=== PATIENT | female | born 1980 | race Caucasian/White ===

== ENCOUNTER 2022-08-13 17:09 | Emergency (ER) | payer MEDICAID, OTHER ==
[~2022-08-13] VITALS: Ht 162.6 cm; Wt 92.0 kg
[2022-08-13] MEDS ORDERED: IBUP600T27 PO (19:38)
[2022-08-13] MEDS ORDERED: PENI500T2 PO (19:38)
[2022-08-13] MEDS ORDERED: MONT-8 PO (19:38)
[2022-08-13 20:15] VITALS: BP 128/83
== END 2022-08-13 20:17 | disposition home or self-care (01) ==
LOC: ER 17:09
DX: J02.9 Acute pharyngitis, unspecified (principal); Z90.710 Acquired absence of both cervix and uterus

== ENCOUNTER 2024-01-04 09:19 | Emergency (ER) | payer MEDICAID ==
[~2024-01-04] VITALS: Ht 162.6 cm; Wt 94.7 kg
[~2024-01-04 09:19] MED LIST: IBUP-1454 PO; MONT-8 PO; PENI500T2 PO
[2024-01-04 09:57] VITALS: BP 138/86; PULSE 88; RESP 16; TEMP 97.9; O2SAT 95
[2024-01-04] MEDS ORDERED: METH4PAK PO (10:36)
== END 2024-01-04 10:48 | disposition home or self-care (01) ==
LOC: ER 09:19
DX: M76.62 Achilles tendinitis, left leg (principal); Z90.710 Acquired absence of both cervix and uterus
CPT/HCPCS: 73610

== ENCOUNTER 2025-02-05 18:06 | Emergency (ER) | payer MEDICAID ==
[~2025-02-05] VITALS: Ht 162.6 cm; Wt 97.3 kg
[~2025-02-05 18:06] MED LIST changes: +METH4PAK PO
[2025-02-05 18:07] VITALS: BP 137/58; PULSE 97; RESP 16; TEMP 98.4; O2SAT 99
[2025-02-05] MEDS: TETANUS-DIPTH-ACEL PERTUSSIS 0.5ML SYR Tdap IM ONE (19:19)
[2025-02-05] MEDS: LIDOCAINE 1% HCL (LOCAL ANESTH.) INJ 20ML MDV ID ONE (19:24)
[2025-02-05] MEDS: cefTRIAXone SOD 1,000 MG VL IM ONE (19:25)
[2025-02-05] MEDS ORDERED: ACET500T58 PO (19:26)
[2025-02-05] MEDS ORDERED: AMOX875T4 PO (19:26)
--- NOTE | 2025-02-05 19:28 | ED.PDOC ---
History of Present Illness(SKN HPI Comments 44 year old female presents to ER with complaints of dog bite to left hand x 1 hour. Patient states her dog who is fully up to date on shots bit her on her left hand 2 hours prior to arrival to ER and sustained 2 lacerations to left hand at that time. She reports 10/10 pain to left hand and is unsure when her last tetanus shot was. Denies use of medications for current symptoms and presents to ER ambulatory, in no distress. Denies numbness/tingling, left wrist pain or any further symptoms/complaints Chief Complaint: Animal Bite Time Seen by MD: 18:13 Primary Care Provider: ORION History of Present Illness: Nurses Notes, Medications, Allergies Allergies: Coded Allergies: NO KNOWN ALLERGIES (Unverified , 08/13/22) Home Meds Active Scripts Amoxicillin & Pot Clavulanate (Amoxicillin/Potassium Cla) 875 Mg Tab, 1 TAB PO BID for 7 Days, #14 TAB 0 Refills Prov:GUDELIA LIRIANO 02/05/25 Acetaminophen (Acetaminophen) 500 Mg Tab, 500 MG PO Q4HPRN, #30 TAB 0 Refills Prov:GUDELIA LIRIANO 02/05/25 Methylprednisolone (Medrol Dosepak) 4 Mg Paul, 4 MG PO UD, #21 TAB UAD Prov:KRANTHI BAÑUELOS 01/04/24 Montelukast Sodium (MONTELUKAST SODIUM) 10 Mg Tab, 1 TAB PO DAILY for 30 Days, #30 TAB 5 Refills Prov:KRANTHI BAÑUELOSP 08/13/22 Ibuprofen (Ibuprofen) 600 Mg Tab, 1 TAB PO TID PRN, #30 TAB Prov:KRANTHI BAÑUELOS 08/13/22 Penicillin V Potassium (Veetids) 500 Mg Tab, 1 TAB PO TID for 10 Days, #30 TAB Prov:KRANTHI BAÑUELOS 08/13/22 Information Source: Patient Mode of Arrival: Ambulatory Past Medical History PAST MEDICAL HISTORY: Denies Surgical History: 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 Family History Family History: Unknown Social History Smoker: Non-Smoker Alcohol: Denies ETOH Use Drugs: Denies Drug Use Lives In: Home Constitutional: denies: chills, diaphoresis, fatigue, fever, malaise, sweats, weakness, others EENTM: denies: blurred vision, double vision, ear bleeding, ear discharge, ear drainage, ear pain, ear ringing, eye pain, eye redness, hearing loss, mouth pain, mouth swelling, nasal discharge, nose bleeding, nose congestion, nose pain, photophobia, tearing, throat pain, throat swelling, voice changes, others Respiratory: denies: cough, hemoptysis, orthopnea, SOB at rest, shortness of breath, SOB with excertion, stridor, wheezing, others Cardiovascular: denies: chest pain, dizzy spells, diaphoresis, Dyspnea on exertion, edema, irregular heart beat, left arm pain, lightheadedness, palpitations, PND, syncope, others Gastrointestinal: denies: abdomen distended, abdominal pain, blood streaked bowels, constipated, diarrhea, dysphagia, difficulty swallowing, hematemesis, m emily, nausea, poor appetite, poor fluid intake, rectal bleeding, rectal pain, vomiting, others Genitourinary: denies: abnormal vagina bleeding, burning, dyspareunia, dysuria, flank pain, frequency, hematuria, incontinence, pain, , vagina discharge, urgency, others Neurological: denies: dizziness, fainting, headache, left sided numbness, left sided weakness, numbness, paresthesia, pre-existing deficit, right sided numbness, right sided weakness, seizure, speech problems, tingling, tremors, weakness, others Musculoskeletal: reports: others (As stated in HPI) Integumetry: reports: others (As stated in HPI) Allergic/Immunocompromised: denies: Difficulty Healing, Frequent Infections, Hives, Itching, others Hematologic/Lymphatic: denies: anemia, blood clots, easy bleeding, easy bruising, swollen glands, others Endocrine: denies: excessive hunger, excessive sweating, excessive thirst, excessive urination, flushing, intolerance to cold, intolerance to heat, unexplained weight gain, unexplained weight loss, others Psychiatric: denies: anxiety, bipolar disorder, depression, hopeless, panic disorder, schizophrenia, sleepless, suicidal, others Physical Exam General Appearance: No Apparent Distress, Obese HEENT: PERRL/EOMI Neck: Full Range of Motion, Non-Tender, Normal Respiratory: Chest Non-Tender, Lungs Clear, No Accessory Muscle Use, No Respiratory Distress, Normal Breath Sounds Cardiovascular: No Murmur, No Gallop, Regular Rate/Rhythm Breast Exam: Deferred Gastrointestinal: NOT DONE Genitalia: Deferred Pelvic: Deferred Rectal: Deferred Extremities: Normal capillary refill, Normal range of motion Neurologic: Alert, chief digital media officer II-XII nml as Tested, No Motor Deficits, Normal Affect, Normal Mood, No Sensory Deficits Cerebellar Function: Normal Reflexes: Normal Skin: Dry, Warm, Other (2 - 2 cm lacerations noted to left hand. Slight TTP/swelling/erythema localized to wound edges. No FB/nailbed injury/further skin changes noted. Patient able to fully move all fingers left hand. Pulses intact) Peripheral Pulses: 2+ Radial (R), 2+ Radial (L), 2+ Brachial (R), 2+ Brachial (L) Lymphatic: No Adenopathy Was a procedure done? Was a procedure done?: No Sedation Sedation?: No Laceration Repair : Location Left hand Length Total of 2 lacerations each 2 cm in size Anesthetic: Lidocaine (1%), Without epi Laceration Repair Prep: Saline, Betadine, by Irrigation (Heavily irrigated without any signs of foreign body) Laceration Repair Wound Comple: epidermis/dermis repair Laceration Repair: Number of sutures (Total of 3 sutures placed- all loosely approximated), Size (4-0), Nylon, Simple, Non-adherent gauze Informed consent obtained: Yes Risks, benefits, and alternati: Yes Differential Diagnosis (INTG) Differential Diagnosis: Fracture Differential Diagnosis: Open Fracture, Puncture Wound, Retained Foreign Body X-Ray, Labs, Meds, VS Vital Signs Date Time Temp Pulse Resp B/P (MAP) Pulse Ox O2 Delivery O2 Flow Rate FiO2 02/05/25 18:07 98.4 97 16 137/58 99 98.4 Current Medications Medications (Trade) Dose Ordered Sig/Alia Route Start Time Stop Time Status Last Admin Diphtheria/ Tetanus/Acell Pertussis (Boostrix T-Dap) 0.5 ml ONCE ONCE IM 02/05/25 19:15 02/05/25 19:16 DC 02/05/25 19:19 Ceftriaxone Sodium (Rocephin) 1,000 mg ONCE ONCE IM 02/05/25 19:30 02/05/25 19:31 DC 02/05/25 19:25 PATIENT: ELDER POOLERENEET: [id number] UNIT: [id number] : 1980 LOC: ER ROOM / BED: / AGE / SEX: 44 / F ADM STATUS: REG ER SERVICE 10 ORDERING PHYSICIAN: GUDELIA LIRIANO PROCEDURE(s): LHAN - L HAND 3V XRAY REASON: left hand pain/laceration ORDER NUMBER(s): [id number], ACCESSION NUMBER(s): [id number] EXAM: XY L HAND 3V XRAY INDICATION: left hand pain/laceration TECHNIQUE: 3 views of the left hand COMPARISON: None FINDINGS/IMPRESSION: No radiographic evidence of an acute osseous abnormality. There is no acute fracture, osseous malalignment, or aggressive focal osseous lesion. There is no radiographically apparent joint space narrowing. Trace soft tissue emphysema along the distal aspect of the palm near the base of the 3rd digit compatible with soft tissue laceration ATED BY: JEANINE LLANES MD DICTATED DATE/TIME: 02/05/251931 SIGNED BY: JEANINE LLANES MD SIGNED DATE/TIME: 02/05/251931 CC: Left hand x-ray reviewed Tdap 0.5 mL IM ordered Rocephin 1 g IM ordered Patient neurovascularly intact and reported improvement in symptoms prior to discharge Advised to follow up in two days for wound check Advised to follow up in 10-14 days for removal of sutures Advised to follow up with PCP in 1-2 days Patient verbalized understanding and agreeable with current plan of care Advised to return to ER immediately if symptoms worsen Images Reviewed?: Images reviewed and evaluated by me Time of 1ST Reevaluation: 19:02 Reevaluation 1ST: N/A Patient Education/Counseling: Diagnosis, Treatment, Prognosis, Need For Follow Up Family Education/Counseling: No Family Present SEPSIS Sepsis Screen Date sepsis recognized/suspect: Feb 05, 2025 Time Sepsis recognized/suspect: 1807 Recent Procedure: No On Antibiotic Therapy: No Respiratory Rate >20: No Heart Rate >90: Yes Temp<36 C (96.8 F) or >38.3 C: No SBP <90 or MAP <65 mmHG: No New Acute Mental Status Change: No Is the patient on CPAP, BIPAP,: No Physician Orders L Hand 3v Xray (8/25/25 19:11) Vital Signs Date Time Temp Pulse Resp B/P (MAP) Pulse Ox O2 Delivery O2 Flow Rate FiO2 02/05/25 18:07 98.4 97 16 137/58 99 98.4 Medications Medications Dose Ordered Sig/Alia Route Start Time Stop Time Status Last Admin Dose Admin Ceftriaxone Sodium 1,000 mg ONCE ONCE IM 02/05/25 19:30 02/05/25 19:31 DC 02/05/25 19:25 Diphtheria/ Tetanus/Acell Pertussis 0.5 ml ONCE ONCE IM 02/05/25 19:15 02/05/25 19:16 DC 02/05/25 19:19 Departure 1 Departure Time of Disposition: 19:22 Impression: Primary Impression: Laceration of left hand Qualified Codes: S61.412A - Laceration without foreign body of left hand, initial encounter Disposition: HOME / SELF CARE / HOMELESS Condition: Stable e-Prescriptions Amoxicillin & Pot Clavulanate (Amoxicillin/Potassium Cla) 875 Mg Tab 1 TAB PO BID for 7 Days, #14 TAB 0 Refills Prov: GUDELIA LIRIANO 02/05/25 Acetaminophen (Acetaminophen) 500 Mg Tab 500 MG PO Q4HPRN, #30 TAB 0 Refills Prov: GUDELIA LIRIANO 02/05/25 Discharged With: Self Critical Care Note Critical Care Time?: No Stability Stability form required: No Heart Score Heart Score: Heart Score Response (Comments) Value History N/A 0 EKG N/A 0 Age N/A 0 Risk Factors N/A 0 Troponin N/A 0 Total 0 GUDELIA LIRIANO Feb 05, 2025 19:28
[2025-02-05] MEDS: LIDOCAINE 1% HCL (LOCAL ANESTH.) INJ 20ML MDV ONE (19:30)
--- NOTE | 2025-02-05 19:35 | DVH ---
EXAM: XY L HAND 3V XRAY INDICATION: left hand pain/laceration TECHNIQUE: 3 views of the left hand COMPARISON: None FINDINGS/IMPRESSION: No radiographic evidence of an acute osseous abnormality. There is no acute fracture, osseous malalig nment, or aggressive focal osseous lesion. There is no radiographically apparent joint space narrowin g. Trace soft tissue emphysema along the distal aspect of the palm near the base of the 3rd digit com patible with soft tissue laceration
== END 2025-02-05 20:24 | disposition home or self-care (01) ==
LOC: ER 18:06
DX: S61.412A Laceration without foreign body of left hand, initial encounter (principal); S61.452A Open bite of left hand, initial encounter; Z79.899 Other long term (current) drug therapy; Z23 Encounter for immunization; Z90.710 Acquired absence of both cervix and uterus; W54.0XXA Bitten by dog, initial encounter; Y93.89 Activity, other specified; Y92.89 Other specified places as the place of occurrence of the external cause; Y99.8 Other external cause status
CPT/HCPCS: 12002; 73130; 90471; 90715; 96372; 99284; J0696; J2003; 12001

== ENCOUNTER 2025-02-08 11:56 | Emergency (ER) | payer MEDICAID ==
[~2025-02-08] VITALS: Ht 162.6 cm; Wt 97.0 kg
[~2025-02-08 11:56] MED LIST changes: +ACET500T58 PO; +AMOX875T4 PO
--- NOTE | 2025-02-08 12:12 | ED.PDOC ---
GI ASSESSMENT HPI Comments 44-year-old female presents to the emergency department for chief complaint of abdominal pain. Patient states, she has been experiencing diffuse abdominal pain with associated symptoms of diarrhea x1 week. Patient reports, that she recently started on Amoxicillin antibiotics due to being bit by a dog last week, symptoms then shortly arose after. Patient denies fever, nausea, vomiting, dizziness, or headache. No other symptoms or modifying factors are present at this time. Chief Complaint: Abdominal Pain Time Seen by MD: 12:00 Primary Care Provider: ORION Land Notes: Nurses Notes, Medications, Allergies Allergies: Coded Allergies: NO KNOWN ALLERGIES (Unverified , 08/13/22) Home Meds Active Scripts Amoxicillin & Pot Clavulanate (Amoxicillin/Potassium Cla) 875 Mg Tab, 1 TAB PO BID for 7 Days, #14 TAB 0 Refills Prov:GUDELIA LIRIANO 02/05/25 Acetaminophen (Acetaminophen) 500 Mg Tab, 500 MG PO Q4HPRN, #30 TAB 0 Refills Prov:GUDELIA LIRIANO 02/05/25 Methylprednisolone (Medrol Dosepak) 4 Mg Paul, 4 MG PO UD, #21 TAB UAD Prov:KRANTHI BAÑUELOS 01/04/24 Montelukast Sodium (MONTELUKAST SODIUM) 10 Mg Tab, 1 TAB PO DAILY for 30 Days, #30 TAB 5 Refills Prov:KRANTHI BAÑUELOS 08/13/22 Ibuprofen (Ibuprofen) 600 Mg Tab, 1 TAB PO TID PRN, #30 TAB Prov:KRANTHI BAÑUELOS 08/13/22 Penicillin V Potassium (Veetids) 500 Mg Tab, 1 TAB PO TID for 10 Days, #30 TAB Prov:KRANTHI BAÑUELOS 08/13/22 Information Source: Friend Mode of Arrival: Ambulatory Timing: Weeks Duration: Since onset Prehospital treatment: None Vomitus: None Stool: Watery Severity: Moderate Recent: Antibiotics Recent Hx of: None Pain Location: Diffuse Modifying Factors: Nothing Associated sign and symptoms: Diarrhea, Abdominal Pain Past Medical History PAST MEDICAL HISTORY: Denies Surgical History: 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 Family History Family History: Unknown Social History Smoker: Non-Smoker Alcohol: Denies ETOH Use Drugs: Denies Drug Use Lives In: Home Constitutional: denies: chills, diaphoresis, fatigue, fever, malaise, sweats, weakness, others EENTM: denies: blurred vision, double vision, ear bleeding, ear discharge, ear drainage, ear pain, ear ringing, eye pain, eye redness, hearing loss, mouth pain, mouth swelling, nasal discharge, nose bleeding, nose congestion, nose pain, photophobia, tearing, throat pain, throat swelling, voice changes, others Respiratory: denies: cough, hemoptysis, orthopnea, SOB at rest, shortness of breath, SOB with excertion, stridor, wheezing, others Cardiovascular: denies: chest pain, dizzy spells, diaphoresis, Dyspnea on exertion, edema, irregular heart beat, left arm pain, lightheadedness, palpitations, PND, syncope, others Gastrointestinal: reports: abdominal pain, diarrhea; denies: abdomen distended, blood streaked bowels, constipated, dysphagia, difficulty swallowing, hematemesis, melena, nausea, poor appetite, poor fluid intake, rectal bleeding, rectal pain, vomiting, others Genitourinary: denies: abnormal vagina bleeding, burning, dyspareunia, dysuria, flank pain, frequency, hematuria, incontinence, pain, , vagina discharge, urgency, others Neurological: denies: dizziness, fainting, headache, left sided numbness, left sided weakness, numbness, paresthesia, pre-existing deficit, right sided numbness, right sided weakness, seizure, speech problems, tingling, tremors, wea kness, others Musculoskeletal: denies: back pain, gout, joint pain, joint swelling, muscle pain, muscle stiffness, neck pain, others Integumetry: denies: bruises, change in color, change in hair/nails, dryness, l aceration, lesions, lumps, rash, wounds, others Allergic/Immunocompromised: denies: Difficulty Healing, Frequent Infections, Hives, Itching, others Hematologic/Lymphatic: denies: anemia, blood clots, easy bleeding, easy bruising, swollen glands, others Endocrine: denies: excessive hunger, excessive sweating, excessive thirst, excessive urination, flushing, intolerance to cold, intolerance to heat, unexplained weight gain, unexplained weight loss, others Psychiatric: denies: anxiety, bipolar disorder, depression, hopeless, panic disorder, schizophrenia, sleepless, suicidal, others All Other Systems: Reviewed and Negative Physical Exam General Appearance: No Apparent Distress, Normal HEENT: Normal ENT Inspection, Pharynx Normal Neck: Full Range of Motion, Non-Tender, Normal, Normal Inspection Respiratory: Chest Non-Tender, Lungs Clear, No Accessory Muscle Use, No Respiratory Distress, Normal Breath Sounds Cardiovascular: No Edema, No Murmur, No Gallop, Normal Peripheral Pulses, Regular Rate/Rhythm Breast Exam: Deferred Gastrointestinal: No Organomegaly, Non Tender, No Pulsatile Mass, Normal Bowel Sounds, Soft Genitalia: Deferred Pelvic: Deferred Rectal: Deferred Extremities: No calf tenderness, Normal capillary refill, Normal inspection, Normal range of motion, Non-tender, No pedal edema Musculoskeletal : Apperance: Normal Neurologic: Alert, brush maker II-XII nml as Tested, No Motor Deficits, Normal Affect, Normal Mood, No Sensory Deficits Cerebellar Function: Normal Reflexes: Normal Skin: Dry, Normal Color, Warm Lymphatic: No Adenopathy Was a procedure done? Was a procedure done?: No GI differential Dx Differential Diagnosis: Gastritis/PUD, Gastroenteritis, Bacterial, Viral X-Ray, Labs, Meds, VS Vital Signs Date Time Temp Pulse Resp B/P (MAP) Pulse Ox O2 Delivery O2 Flow Rate FiO2 02/08/25 11:57 98.4 100 18 137/82 99 98.4 Lab Test 02/08/25 14:05 02/08/25 12:00 Range/Units Urine Color Light-yellow Yellow Urine Clarity Turbid H Clear Urine pH 6.5 5.0-9.0 Urine Specific [place] 1.015 1.001-1.035 Urine Protein Negative Negative Urine Ketones Negative Negative Urine Blood Negative Negative /uL Urine Nitrite Negative Negative Urine Bilirubin Negative Negative Urine Urobilinogen Normal Negative mg/dL Urine Leukocyte Esterase Negative Negative /uL Urine RBC 4 0 - 4 /hpf Urine Microscopic WBC 1 0-5 /HPF Urine Squamous Epithelial Cells Few <5 /hpf Urine Bacteria Few H None Seen /hpf Urine Glucose Normal Normal mg/dL White Blood Count 8.0 4.4-10.8 10^3/uL Red Blood Count 4.82 4.0-5.20 10^6/uL Hemoglobin 15.2 12.2-16.2 g/dL Hematocrit 45.4 36.0-46.0 % Mean Corpuscular Volume 94.2 80.0-100.0 fL Mean Corpuscular Hemoglobin 31.6 28.0-32.0 pg Mean Corpuscular Hemoglobin Concent 33.5 32.0-36.0 g/dL Red Cell Distribution Width 13.9 11.8-14.3 % Platelet Count 337 140-450 10^3/uL Mean Platelet Volume 7.7 6.9-10.8 fL Neutrophils (%) (Auto) 71.2 37.0-80.0 % Lymphocytes (%) (Auto) 23.1 10.0-50.0 % Monocytes (%) (Auto) 3.8 0.0-12.0 % Eosinophils (%) (Auto) 1.2 0.0-7.0 % Basophils (%) (Auto) 0.7 0.0-2.0 % Neutrophils # (Auto) 5.7 1.6-8.6 10 ^3/uL Lymphocytes # (Auto) 1.9 0.4-5.4 10 ^3/uL Monocytes # (Auto) 0.3 0-1.3 10 ^3/uL Eosinophils # (Auto) 0.1 0-0.8 10 ^3/uL Basophils # (Auto) 0.1 0-0.2 10 ^3/uL Nucleated Red Blood Cells 0.0 % Sodium Level 139 136-145 mmol/L Potassium Level 4.2 3.5-5.1 mmol/L Chloride Level 106 98-107 mmol/L Carbon Dioxide Level 25 20-31 mmol/L Anion Gap 8 5-15 Blood Urea Nitrogen 7 L 9-23 mg/dL Creatinine 0.70 0.550-1.02 mg/dL Glomerular Filtration Rate Calc 109 >90 mL/min BUN/Creatinine Ratio 10.0 10.0-20.0 Serum Glucose 103 74-106 mg/dL Calcium Level 9.2 8.7-10.4 mg/dL Time of 1ST Reevaluation: 12:30 Reevaluation 1ST: Unchanged Patient Education/Counseling: Diagnosis, Treatment Family Education/Counseling: No Family Present SEPSIS Sepsis Screen Date sepsis recognized/suspect: Feb 08, 2025 Time Sepsis recognized/suspect: 1200 Recent Procedure: No On Antibiotic Therapy: Yes (AMOXICILLIN) Respiratory Rate >20: No Heart Rate >90: No Temp<36 C (96.8 F) or >38.3 C: No SBP <90 or MAP <65 mmHG: No New Acute Mental Status Change: No Is the patient on CPAP, BIPAP,: No Vital Signs Date Time Temp Pulse Resp B/P (MAP) Pulse Ox O2 Delivery O2 Flow Rate FiO2 02/08/25 11:57 98.4 100 18 137/82 99 98.4 Laboratory Tests Test 02/08/25 12:00 White Blood Count 8.0 10^3/uL (4.4-10.8) Departure 1 Departure Time of Disposition: 14:50 (Patient likely with a medication reaction. ) Impression: Primary Impression: Drug reaction Qualified Codes: T50.905A - Adverse effect of unspecified drugs, medicaments and biological substances, initial encounter Disposition: HOME / SELF CARE / HOMELESS Condition: Stable Additional Instructions: The antibiotics you are taking are know to cause some GI distress. You should stop taking them and instead take the antibiotics prescribed today. For pain you can take the followinam: Ibuprofen 400mg with food Noon: Acetaminophen 1000mg 4pm: Ibuprofen 400mg with food 8pm: Acetaminophen 1000mg You should follow up with your regular doctor within one week to ensure you are doing better. If your symptoms worsen or you have any other concerns then please return to the ER. e-Prescriptions Clindamycin Hcl (Clindamycin Hcl) 300 Mg Cap 1 CAP PO TID for 5 Days, #21 CAP Prov: JORGE LUIS NICOLAS MD 02/08/25 Discharged With: Self Critical Care Note Critical Care Time?: No Stability Stability form required: No Heart Score Heart Score: Heart Score Response (Comments) Value History N/A 0 EKG N/A 0 Age N/A 0 Risk Factors N/A 0 Troponin N/A 0 Total 0 I personally scribed for JORGE LUIS NICOLAS MD ([email or web address]) on 02/08/25 at 12:11. Electronically submitted by Casandra Brown ([email or web address]). I personally scribed for JORGE LUIS NICOLAS MD ([email or web address]) on 02/08/25 at 12:18. Electronically submitted by Casandra Brown ([email or web address]). JORGE LUIS NICOLAS MD Feb 08, 2025 12:11
[2025-02-08 12:27] LABS: Hematocrit 45.4 % (36.0-46.0); Hemoglobin 15.2 g/dL (12.2-16.2); Mean Corpuscular Hemoglobin 31.6 pg (28.0-32.0); Mean Corpuscular Volume 94.2 fL (80.0-100.0); Nucleated Red Blood Cells % 0.0 %
[2025-02-08 12:33] LABS: Chloride 106 mmol/L (98-107); Potassium 4.2 mmol/L (3.5-5.1); Sodium 139 mmol/L (136-145)
[2025-02-08 12:34] LABS: Anion Gap 8 (5-15); Calcium 9.2 mg/dL (8.7-10.4); Carbon Dioxide 25 mmol/L (20-31)
[2025-02-08 12:39] LABS: BUN/Creatinine Ratio 10.0 (10.0-20.0); Glucose 103 mg/dL (74-106)
[2025-02-08 12:40] LABS: Blood Urea Nitrogen 7 mg/dL (9-23)
[2025-02-08 14:30] VITALS: BP 158/96; PULSE 96; RESP 18; TEMP 97.8; O2SAT 96
[2025-02-08 14:35] LABS: Urine Protein, UAD Negative (Negative)
[2025-02-08] MEDS ORDERED: CLIN1CAP70 PO (14:55)
[2025-02-08] MEDS ORDERED: FAMOTIDINE 20 MG TAB PO ONE (15:00)
[2025-02-08] MEDS ORDERED: ONDANSETRON ODT 4 MG TAB PO ONE (15:00)
[2025-02-08] MEDS ORDERED: MAALOX PLUS or MAALOX 30 ML PO ONE (15:00)
== END 2025-02-08 17:40 | disposition home or self-care (01) ==
LOC: ER 11:56
DX: R10.84 Generalized abdominal pain (principal); T50.905A Adverse effect of unspecified drugs, medicaments and biological substances, initial encounter; Z90.710 Acquired absence of both cervix and uterus; Z79.899 Other long term (current) drug therapy; Y92.89 Other specified places as the place of occurrence of the external cause
CPT/HCPCS: 36415; 80048; 81001; 85025; Q0162

== ENCOUNTER 2025-04-26 09:15 | Inpatient (IN) | payer MEDICAID ==
[~2025-04-26] VITALS: Ht 162.6 cm; Wt 105.0 kg
[2025-04-26] MEDS: SODIUM CHLORIDE 0.9% 1,000 ML IV SCH (00:50)
[2025-04-26] MEDS: GABAPENTIN 300 MG CAP PO SCH (00:50)
[~2025-04-26 09:15] MED LIST changes: +CLIN1CAP70 PO
--- NOTE | 2025-04-26 09:22 | ECG ---
[facility] Test Date: 2025-04-26 Test Time: 09:19:55 Pat Name: ELDER POOLE Department: ED Room: [address] [place] [address] Gender: F [employer] Low Truck Driver: MICHELLE : 1980 Requested By: TITA BROWN Order Number: [id number] Reading MD: Christiano Spaulding Measurements Intervals [place] Rate: 82 P: 66 GA: 136 QRS: 85 QRSD: 91 T: 32 QT: 358 QTc: 418 Interpretive Statements Sinus rhythm Electronically Signed On 04-27-2025 15:46:06 PST by Christiano Spaulding Please click the below link to view image of tracing.
[2025-04-26] MEDS: PANTOPRAZOLE 40 MG/10 ML VIAL INJ IV ONE (09:30)
[2025-04-26] MEDS: ONDANSETRON HCL 4 MG/2 ML VIAL IV ONE (09:30)
[2025-04-26] MEDS: MORPHINE SULFATE INJ 2 MG/ml SYRG IV ONE (09:30)
--- NOTE | 2025-04-26 09:37 | ED.PDOC ---
GI ASSESSMENT HPI Comments This is a 44 year old female presenting to the ED with chief complaint of chest/epigastric pain. Patient reports that she had woke up this morning around 5am with epigastric pain that radiates up to her chest and back along with dizziness. Patient relays that her pain is currently a 10/10 and is worse with sitting and laying down. Patient denies any nausea, vomiting, diarrhea, fever, chills, or SOB. Chief Complaint: Chest Pain Time Seen by MD: 09:35 Primary Care Provider: ORION Land Notes: Nurses Notes, Medications, Allergies Allergies: Coded Allergies: NO KNOWN ALLERGIES (Unverified , 08/13/22) Home Meds Active Scripts Clindamycin Hcl (Clindamycin Hcl) 300 Mg Cap, 1 CAP PO TID for 5 Days, #21 CAP Prov:JORGE LUIS NICOLAS MD 02/08/25 Amoxicillin & Pot Clavulanate (Amoxicillin/Potassium Cla) 875 Mg Tab, 1 TAB PO BID for 7 Days, #14 TAB 0 Refills Prov:GUDELIA LIRIANO 02/05/25 Acetaminophen (Acetaminophen) 500 Mg Tab, 500 MG PO Q4HPRN, #30 TAB 0 Refills Prov:GUDELIA LIRIANO 02/05/25 Methylprednisolone (Medrol Dosepak) 4 Mg Paul, 4 MG PO UD, #21 TAB UAD Prov:KRANTHI CHAMORRO 01/04/24 Montelukast Sodium (MONTELUKAST SODIUM) 10 Mg Tab, 1 TAB PO DAILY for 30 Days, #30 TAB 5 Refills Prov:KRANTHI CHAMORRO 08/13/22 Ibuprofen (Ibuprofen) 600 Mg Tab, 1 TAB PO TID PRN, #30 TAB Prov:KRANTHI CHAMORRO 08/13/22 Penicillin V Potassium (Veetids) 500 Mg Tab, 1 TAB PO TID for 10 Days, #30 TAB Prov:KRANTHI CHAMORRO 08/13/22 Information Source: Patient Mode of Arrival: Ambulatory Timing: Hours Duration: Since onset Prehospital treatment: None Quality: Sharp Vomitus: None Stool: Normal Severity: Moderate Recent: None Pain Location: Epigastric Modifying Factors: Nothing Associated sign and symptoms: Abdominal Pain Past Medical History PAST MEDICAL HISTORY: Denies Surgical History: Hysterectomy ON AIR DIRECTOR History: Denies all ON AIR DIRECTOR Hx Family History Family History: Reviewed,noncontributory to illness, Family hx of DM, Family hx of heart [place], Family hx of HTN Social History Smoker: Non-Smoker Alcohol: Denies ETOH Use Drugs: Denies Drug Use Lives In: Home Constitutional: denies: chills, diaphoresis, fatigue, fever, malaise, sweats, weakness, others EENTM: denies: blurred vision, double vision, ear bleeding, ear discharge, ear drainage, ear pain, ear ringing, eye pain, eye redness, hearing loss, mouth pain, mouth swelling, nasal discharge, nose bleeding, nose congestion, nose pain, photophobia, tearing, throat pain, throat swelling, voice changes, others Respiratory: denies: cough, hemoptysis, orthopnea, SOB at rest, shortness of breath, SOB with excertion, stridor, wheezing, others Cardiovascular: reports: chest pain; denies: dizzy spells, diaphoresis, Dyspnea on exertion, edema, irregular heart beat, left arm pain, lightheadedness, palpitations, PND, syncope, others Gastrointestinal: reports: abdominal pain; denies: abdomen distended, blood streaked bowels, constipated, diarrhea, dysphagia, difficulty swallowing, hematemesis, melena, nausea, poor appetite, poor fluid intake, rectal bleeding, rectal pain, vomiting, others Genitourinary: denies: abnormal vagina bleeding, burning, dyspareunia, dysuria, flank pain, frequency, hematuria, incontinence, pain, , vagina discharge, urgency, others Neurological: reports: dizziness; denies: fainting, headache, left sided numbness, left sided weakness, numbness, paresthesia, pre-existing deficit, right sided numbness, right sided weakness, seizure, speech problems, tingling, tremors, weakness, others Musculoskeletal: denies: back pain, gout, joint pain, joint swelling, muscle pain, muscle stiffness, neck pain, others Integumetry: denies: bruises, change in color, change in hair/nails, dryness, laceration, lesions, lumps, rash, wounds, others Allergic/Immunocompromised: denies: Difficulty Healing, Frequent Infections, Hives, Itching, others Hematologic/Lymphatic: denies: anemia, blood clots, easy bleeding, easy bruising, swollen glands, others Endocrine: denies: excessive hunger, excessive sweating, excessive thirst, excessive urination, flushing, intolerance to cold, intolerance to heat, unexp lained weight gain, unexplained weight loss, others Psychiatric: denies: anxiety, bipolar disorder, depression, hopeless, panic disorder, schizophrenia, sleepless, suicidal, others All Other Systems: Reviewed and Negative Physical Exam General Appearance: Moderate Distress HEENT: Normal ENT Inspection, Pharynx Normal, TMs Normal Neck: Full Range of Motion, Non-Tender, Normal, Normal Inspection Respiratory: Chest Non-Tender, Lungs Clear, No Accessory Muscle Use, No Respiratory Distress, Normal Breath Sounds Cardiovascular: No Edema, No JVD, No Murmur, No Gallop, Normal Peripheral Pulses, Regular Rate/Rhythm Breast Exam: Deferred Gastrointestinal: Epigastric, No Organomegaly, No Pulsatile Mass, Normal Bowel Sounds, Soft, Tenderness Genitalia: Deferred Pelvic: Deferred Rectal: Deferred Extremities: No calf tenderness, Normal capillary refill, Normal inspection, Normal range of motion, Non-tender, No pedal edema Musculoskeletal : Apperance: Normal Neurologic: Alert, 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 Was a procedure done?: No GI differential Dx Differential Diagnosis: Cholangitis, Cholecystitis, Gastritis/PUD, Gastroenteritis, Pancreatitis, UTI, Urolithiasis, Electrolyte Imbalance, Food Poisoning X-Ray, Labs, Meds, VS Vital Signs Date Time Temp Pulse Resp B/P (MAP) Pulse Ox O2 Delivery O2 Flow Rate FiO2 04/26/25 09:19 82 04/26/25 09:18 98.4 75 18 166/99 98 98.4 Lab Test 04/26/25 10:35 04/26/25 08:28 Range/Units Troponin I High Sensitivity Pending < 3 L </=34 ng/L Lipase Pending White Blood Count 9.2 4.4-10.8 10^3/uL Red Blood Count 5.16 4.0-5.20 10^6/uL Hemoglobin 16.4 H 12.2-16.2 g/dL Hematocrit 47.2 H 36.0-46.0 % Mean Corpuscular Volume 91.6 80.0-100.0 fL Mean Corpuscular Hemoglobin 31.9 28.0-32.0 pg Mean Corpuscular Hemoglobin Concent 34.8 32.0-36.0 g/dL Red Cell Distribution Width 13.4 11.8-14.3 % Platelet Count 330 140-450 10^3/uL Mean Platelet Volume 8.2 6.9-10.8 fL Neutrophils (%) (Auto) 70.6 37.0-80.0 % Lymphocytes (%) (Auto) 22.7 10.0-50.0 % Monocytes (%) (Auto) 5.1 0.0-12.0 % Eosinophils (%) (Auto) 0.8 0.0-7.0 % Basophils (%) (Auto) 0.8 0.0-2.0 % Neutrophils # (Auto) 6.5 1.6-8.6 10 ^3/uL Lymphocytes # (Auto) 2.1 0.4-5.4 10 ^3/uL Monocytes # (Auto) 0.5 0-1.3 10 ^3/uL Eosinophils # (Auto) 0.1 0-0.8 10 ^3/uL Basophils # (Auto) 0.1 0-0.2 10 ^3/uL Nucleated Red Blood Cells 0.1 % Sodium Level 139 136-145 mmol/L Potassium Level 5.1 3.5-5.1 mmol/L Chloride Level 103 98-107 mmol/L Carbon Dioxide Level 27 20-31 mmol/L Anion Gap 9 5-15 Blood Urea Nitrogen 11 9-23 mg/dL Creatinine 0.79 0.550-1.02 mg/dL Glomerular Filtration Rate Calc 94 >90 mL/min BUN/Creatinine Ratio 13.9 10.0-20.0 Serum Glucose 97 74-106 mg/dL Calcium Level 10.3 8.7-10.4 mg/dL Gallbladder US indicates: Gallstones without acute cholecystitis at this time. Dilated CBD. Further assessment with MRCP may be warranted to exclude choledocholithiasis. [id number] hepatic steatosis with hepatomegaly. The CBC is within normal limits The chemistry panel is within normal limits. We are ordering liver enzymes on this patient The troponin level is negative The patient is being admitted with a diagnosis of intractable abdominal pain The patient's diagnosis is cholelithiasis Images Reviewed?: Images reviewed and evaluated by me Time of 1ST Reevaluation: 11:05 Reevaluation 1ST: Unchanged Patient Education/Counseling: Diagnosis, Treatment, Prognosis Family Education/Counseling: No Family Present SEPSIS Sepsis Screen Date sepsis recognized/suspect: Apr 26, 2025 Time Sepsis recognized/suspect: 921 Recent Procedure: No On Antibiotic Therapy: No Respiratory Rate >20: No Heart Rate >90: No Temp<36 C (96.8 F) or >38.3 C: No SBP <90 or MAP <65 mmHG: No New Acute Mental Status Change: No Is the patient on CPAP, BIPAP,: No Physician Orders Electrocardigram (04/26/25 10:17) Electrocardigram (04/26/25 12:17) Troponin-I Hs (04/26/25 10:17) Troponin-I Hs (04/26/25 12:17) Test, Urine (04/26/25 09:17) Chest Portable (04/26/25 09:17) Lipase (04/26/25 09:28) Gallbladder (04/26/25 09:28) Vital Signs Date Time Temp Pulse Resp B/P (MAP) Pulse Ox O2 Delivery O2 Flow Rate FiO2 04/26/25 09:19 82 04/26/25 09:18 98.4 75 18 166/99 98 98.4 Laboratory Tests Test 04/26/25 08:28 White Blood Count 9.2 10^3/uL (4.4-10.8) Departure 1 Departure Time of Disposition: 11:05 Impression: Primary Impression: Intractable abdominal pain Additional Impression: Cholelithiasis Qualified Codes: K80.20 - Calculus of gallbladder without cholecystitis without obstruction Disposition: ADMITTED INPATIENT Admit to: Med Surg Condition: Fair Critical Care Note Critical Care Time?: No Stability Stability form required: Yes Unstable for transfer: ED Physician Assesment (Clinical assesment) Heart Score Heart Score: Heart Score Response (Comments) Value History Slightly Suspicious 0 EKG Normal 0 Age 45-64 1 Risk Factors No known risk factors 0 Troponin N/A 0 Total 1 I personally scribed for TITA BROWN MD ([email or web address]) on 04/26/25 at 09:37. Electronically submitted by Manuel Wheeler ([email or web address]). TITA BROWN MD Apr 26, 2025 09:37
[2025-04-26 09:55] LABS: Hematocrit 47.2 % (36.0-46.0); Hemoglobin 16.4 g/dL (12.2-16.2); Mean Corpuscular Hemoglobin 31.9 pg (28.0-32.0); Mean Corpuscular Volume 91.6 fL (80.0-100.0); Nucleated Red Blood Cells % 0.1 %
[2025-04-26 10:03] LABS: Chloride 103 mmol/L (98-107); Sodium 139 mmol/L (136-145)
[2025-04-26 10:04] LABS: Anion Gap 9 (5-15); Calcium 10.3 mg/dL (8.7-10.4); Carbon Dioxide 27 mmol/L (20-31)
[2025-04-26 10:09] LABS: BUN/Creatinine Ratio 13.9 (10.0-20.0); Blood Urea Nitrogen 11 mg/dL (9-23); Glucose 97 mg/dL (74-106); Potassium 5.1 mmol/L (3.5-5.1)
--- NOTE | 2025-04-26 10:36 | DVH ---
INDICATION: pain TECHNIQUE: Multiple real-time sonographic images were obtained of the right upper quadrant. COMPARISON: None FINDINGS: Liver is enlarged measuring 20.0 cm with [id number] diffuse fatty infiltration. Slight prominence of the central intrahepatic biliary ducts. The common duct measures 1.2 mm. The gallbladder is without evidence of stone or sludge. The gallbladder wall measures 0.2 mm and is within normal limits. The right kidney measures 11.2 cm. No stones or hydronephrosis. Fairly simple appearing cysts at the midpole measuring 3.5 x 2.6 x 3.5 cm. The pancreas is not well visualized due to overlying bowel gas. IMPRESSION: Gallstones without acute cholecystitis at this time. Dilated CBD. Further assessment with MRCP may be warranted to exclude choledocholithiasis. Stgm-[id number] hepatic steatosis with hepatomegaly.
[2025-04-26] MEDS: MORPHINE SULFATE 4 MG/ML SYR/VIAL ONE (11:06)
[2025-04-26] MEDS ORDERED: ACETAMINOPHEN 325 MG TAB PO PRN (14:00)
[2025-04-26] MEDS ORDERED: CELE1CAP29 PO (14:02)
[2025-04-26] MEDS ORDERED: GABA-1250 PO (14:02)
[2025-04-26] MEDS ORDERED: CYCL-611 PO (14:02)
--- NOTE | 2025-04-26 14:12 | DVHHP2 ---
History of Present Illness Reason for Visit: Abdominal pain History of Present Illness Linda Ruelas is a 44-year-old female with past medical history of hysterectomy who presents to the ED with abdominal pain that began this morning at 5, reports that her pain is 10/10 initially stabbing and constant. She states that it radiates to her left shoulder and sent her back. She reports that sitting down or lying down makes it worse. However she states that standing up makes it better. Patient denies any recent trauma or injury, recent sick contacts, recent travels, recent ingestion of spoiled food, chest pain, shortness of breath, fever, chills, lightheadedness, weakness, dizziness, or urinary symptoms. Patient also reports that she is compliant with her medications. Past Surgical History: Hysterectomy Family History: Other (Mom with heart disease) Smoke: No ALCOHOL: none Drugs: None Lives: with Family Domestic Violence: Neg Review of Systems Gastrointestinal: Abdominal Pain Allergies: Coded Allergies: NO KNOWN ALLERGIES (Unverified , 08/13/22) Exam Vital Signs Vital Signs Date Time Temp Pulse Resp B/P (MAP) Pulse Ox O2 Delivery O2 Flow Rate FiO2 04/26/25 11:06 87 16 142/71 04/26/25 09:18 98.4 98 98.4 General Appearance: Alert, Oriented X3, Cooperative, No acute distress HEENT: Atraumatic, PERRLA, EOMI, Mucous membr. moist/pink Respiratory: Clear to auscultation, Normal air movement Cardiovascular: Regular rate, Normal S1, Normal S2, No murmurs Abdominal: Soft Extremities: No edema, Normal pulses Skin: No significant lesion Neuro: Normal gait, Normal speech, Strength at 5/5 X4 ext, Normal tone, Sensation intact Psych/Mental Status: Mental status NL, Mood NL Labs/Xrays Labs Test 04/26/25 13:22 04/26/25 12:50 04/26/25 10:35 04/26/25 08:28 Range/Units Lipase 33 12-53 U/L White Blood Count 9.2 4.4-10.8 10^3/uL Red Blood Count 5.16 4.0-5.20 10^6/uL Hemoglobin 16.4 H 12.2-16.2 g/dL Hematocrit 47.2 H 36.0-46.0 % Mean Corpuscular Volume 91.6 80.0-100.0 fL Mean Corpuscular Hemoglobin 31.9 28.0-32.0 pg Mean Corpuscular Hemoglobin Concent 34.8 32.0-36.0 g/dL Red Cell Distribution Width 13.4 11.8-14.3 % Platelet Count 330 140-450 10^3/uL Mean Platelet Volume 8.2 6.9-10.8 fL Neutrophils (%) (Auto) 70.6 37.0-80.0 % Lymphocytes (%) (Auto) 22.7 10.0-50.0 % Monocytes (%) (Auto) 5.1 0.0-12.0 % Eosinophils (%) (Auto) 0.8 0.0-7.0 % Basophils (%) (Auto) 0.8 0.0-2.0 % Neutrophils # (Auto) 6.5 1.6-8.6 10 ^3/uL Lymphocytes # (Auto) 2.1 0.4-5.4 10 ^3/uL Monocytes # (Auto) 0.5 0-1.3 10 ^3/uL Eosinophils # (Auto) 0.1 0-0.8 10 ^3/uL Basophils # (Auto) 0.1 0-0.2 10 ^3/uL Nucleated Red Blood Cells 0.1 % Sodium Level 139 136-145 mmol/L Potassium Level 5.1 3.5-5.1 mmol/L Chloride Level 103 98-107 mmol/L Carbon Dioxide Level 27 20-31 mmol/L Anion Gap 9 5-15 Blood Urea Nitrogen 11 9-23 mg/dL Creatinine 0.79 0.550-1.02 mg/dL Glomerular Filtration Rate Calc 94 >90 mL/min BUN/Creatinine Ratio 13.9 10.0-20.0 Serum Glucose 97 74-106 mg/dL Calcium Level 10.3 8.7-10.4 mg/dL CLINICAL HISTORY: ro choledolchole TECHNIQUE: MRI and MRCP of the abdomen was performed without gadolinium. 3D reconstructed images were created under concurrent radiologist supervision and archived on the PACS system. COMPARISON: None FINDINGS: The spleen, pancreas, adrenal glands, kidneys, and liver are grossly unremarkable. The gallbladder contains numerous stones with Trace pericholecystic fluid. The common duct is dilated, measuring 14 mm. No intraductal filling defects suggest a stone is seen. The abdominal aorta is normal course and caliber. No enlarged lymph node is seen. No free fluid is present. IMPRESSION: Cholelithiasis with trace pericholecystic fluid. Dilated 14 mm common duct. No intraductal filling defect to suggest stone. INDICATION: CP TECHNIQUE: Frontal view of the chest. COMPARISON: None FINDINGS: . The heart and mediastinal contours are grossly unremarkable. There is no evidence of pleural disease. The lungs are clear. The bony structures of the chest are intact without fracture. IMPRESSION: 1. No evidence of acute disease. INDICATION: pain TECHNIQUE: Multiple real-time sonographic images were obtained of the right upper quadrant. COMPARISON: None FINDINGS: Liver is enlarged measuring 20.0 cm with bwxl-jk-[id number] diffuse fatty infiltration. Slight prominence of the central intrahepatic biliary ducts. The common duct measures 1.2 mm. The gallbladder is without evidence of stone or sludge. The gallbladder wall measures 0.2 mm and is within normal limits. The right kidney measures 11.2 cm. No stones or hydronephrosis. Fairly simple appearing cysts at the midpole measuring 3.5 x 2.6 x 3.5 cm. The pancreas is not well visualized due to overlying bowel gas. IMPRESSION: Gallstones without acute cholecystitis at this time. Dilated CBD. Further assessment with MRCP may be warranted to exclude choledocholithiasis. Xmfq-xz-wraczduk hepatic steatosis with hepatomegaly. SEPSIS Sepsis Screen Date sepsis recognized/suspect: Apr 26, 2025 Time Sepsis recognized/suspect: 921 Recent Procedure: No On Antibiotic Therapy: No Respiratory Rate >20: No Heart Rate >90: No Temp<36 C (96.8 F) or >38.3 C: No SBP <90 or MAP <65 mmHG: No New Acute Mental Status Change: No Is the patient on CPAP, BIPAP,: No Physician Orders Electrocardigram (04/26/25 10:17) Electrocardigram (04/26/25 12:17) Troponin-I Hs (04/26/25 12:17) Test, Urine (04/26/25 09:17) Chest Portable (04/26/25 09:17) Gallbladder (04/26/25 09:28) Vital Signs Date Time Temp Pulse Resp B/P (MAP) Pulse Ox O2 Delivery O2 Flow Rate FiO2 04/26/25 11:06 87 16 142/71 04/26/25 10:14 93 04/26/25 09:30 67 16 142/71 04/26/25 09:19 82 04/26/25 09:18 98.4 75 18 166/99 98 98.4 Laboratory Tests Test 04/26/25 08:28 White Blood Count 9.2 10^3/uL (4.4-10.8) Medications Medications Dose Ordered Sig/Alia Route Start Time Stop Time Status Last Admin Dose Admin Morphine Sulfate 2 mg ONCE ONCE IV 04/26/25 09:30 04/26/25 09:31 DC 04/26/25 09:30 2 MG Ondansetron HCl 4 mg ONCE ONCE IV 04/26/25 09:30 04/26/25 09:31 DC 04/26/25 09:30 4 MG Pantoprazole Sodium 40 mg ONCE ONCE IV 04/26/25 09:30 04/26/25 09:31 DC 04/26/25 09:30 40 MG Assessment/Plan Assessment/Plan Assessment Intractable abdominal pain Gallstones Dilated CBD rule out choledocholithiasis Cholelithiasis with trace pericholecystic fluid Dilated 14 mm common duct Igjw-yu-kyqzpskp hepatic steatosis with hepatomegaly History of hysterectomy Plan Patient will need transfer to higher level care for ERCP, discussed with ER staff Antiemetics Pain management Gallbladder ultrasound noted MRCP ordered IV fluids NPO Home medications reconciled DVT prophylaxis-SCDs PUD prophylaxis-PPIs Discussed plan of care with patient nurse [id number] Preventive counseling healthy eating habits, physical activity, and regular checkups Plan discussed with: Patient Date of Service: Apr 26, 2025 Billing Provider: GREG LUU Common Visit Codes: [id number]-[id number] INP/OBS CARE (HIGH) Secondary Visit Codes: [id number]-[id number] COUNSELING IND GREG LUU Apr 26, 2025 14:12
--- NOTE | 2025-04-26 14:53 | DVH ---
INDICATION: CP TECHNIQUE: Frontal view of the chest. COMPARISON: None FINDINGS: . The heart and mediastinal contours are grossly unremarkable. There is no evidence of pleural disease. The lungs are clear. The bony structures of the chest are intact without fracture. IMPRESSION: 1. No evidence of acute disease.
--- NOTE | 2025-04-26 15:35 | DVH ---
CLINICAL HISTORY: ro choledolchole TECHNIQUE: MRI and MRCP of the abdomen was performed without gadolinium. 3D reconstructed images were created under concurrent radiologist supervision and archived on the PACS system. COMPARISON: None FINDINGS: The spleen, pancreas, adrenal glands, kidneys, and liver are grossly unremarkable. The gallbladder contains numerous stones with Trace pericholecystic fluid. The common duct is dilated, measuring 14 mm. No intraductal filling defects suggest a stone is seen. The abdominal aorta is normal course and caliber. No enlarged lymph node is seen. No free fluid is present. IMPRESSION: Cholelithiasis with trace pericholecystic fluid. Dilated 14 mm common duct. No intraductal filling defect to suggest stone.
[2025-04-26 16:13] VITALS: PULSE 96; RESP 18; O2SAT 97
[2025-04-26] MEDS: ONDANSETRON HCL 4 MG/2 ML VIAL IV PRN (16:23)
[2025-04-26] MEDS: MORPHINE SULFATE INJ 2 MG/ml SYRG IV PRN (16:24)
--- NOTE | 2025-04-26 19:28 | ECG ---
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
[2025-04-26 19:40] LABS: Alkaline Phosphatase 111.0 U/L (46-116); Bilirubin, Total 0.8 mg/dL (0.2-1.0)
[2025-04-26 19:44] LABS: Alanine Aminotransferase 394.0 U/L (7-40)
[2025-04-26] MEDS: HYDROcodone-ACET 5/325MG TAB PO PRN (21:11)
[2025-04-27 05:39] LABS: Hematocrit 42.6 % (36.0-46.0); Hemoglobin 14.3 g/dL (12.2-16.2); Mean Corpuscular Hemoglobin 31.1 pg (28.0-32.0); Mean Corpuscular Volume 92.8 fL (80.0-100.0); Nucleated Red Blood Cells % 0.0 %
[2025-04-27 06:38] LABS: Anion Gap 10 (5-15); Calcium 8.8 mg/dL (8.7-10.4); Carbon Dioxide 26 mmol/L (20-31); Chloride 106 mmol/L (98-107); Potassium 4.5 mmol/L (3.5-5.1); Sodium 142 mmol/L (136-145)
[2025-04-27 06:43] LABS: Glucose 89 mg/dL (74-106)
[2025-04-27 06:44] LABS: Alkaline Phosphatase 91 U/L (46-116); BUN/Creatinine Ratio 16.3 (10.0-20.0); Blood Urea Nitrogen 14 mg/dL (9-23); Total Protein 6.2 g/dL (5.7-8.2)
[2025-04-27 06:45] LABS: Alanine Aminotransferase 260 U/L (7-40); Albumin 3.8 g/dL (3.2-4.8)
[2025-04-27 06:46] LABS: Bilirubin, Total 0.5 mg/dL (0.2-1.0)
[2025-04-27 07:29] VITALS: PULSE 86; RESP 17; O2SAT 95
[2025-04-27] MEDS: SODIUM CHLORIDE 0.9% 1,000 ML IV SCH (10:25)
[2025-04-27] MEDS: MORPHINE SULFATE INJ 2 MG/ml SYRG IV PRN (11:42)
[2025-04-27 13:00] VITALS: BP 133/88; PULSE 85; RESP 18; TEMP 98.3; O2SAT 97
[2025-04-27 17:00] VITALS: BP 138/89; PULSE 85; RESP 18; TEMP 98.2; O2SAT 96
--- NOTE | 2025-04-27 19:56 | DVHINCON2 ---
Date of service: Apr 27, [address] Kamara Reason for Consultation Abdominal pain History of Present Illness This 43-year-old female presented to the emergency room with complaints of severe abdominal pain which initially small to start with in the epigastrium apparently got progressively worse up to 10/10 radiating to the shoulder as well as the back. Patient had a CAT scan which ultrasound which showed gallbladder stones and dilated CBD and an MRCP which showed cholelithiasis with dilated common bile duct without any stones Liver enzymes are high and lipase is normal no history of any ethanol ingestion Past Medical History None Past Surgical History Hysterectomy Family History: Cardiovascular disease G8 MOTHER Family History Noncontributory Social History Denies smoking or drinking Allergies: Coded Allergies: NO KNOWN ALLERGIES (Unverified , 08/13/22) Home Meds Active Scripts Clindamycin Hcl (Clindamycin Hcl) 300 Mg Cap, 1 CAP PO TID for 5 Days, #21 CAP Prov:JORGE LUIS NICOLAS MD 02/08/25 Amoxicillin & Pot Clavulanate (Amoxicillin/Potassium Cla) 875 Mg Tab, 1 TAB PO BID for 7 Days, #14 TAB 0 Refills Prov:GUDELIA LIRIANO 02/05/25 Acetaminophen (Acetaminophen) 500 Mg Tab, 500 MG PO Q4HPRN, #30 TAB 0 Refills Prov:GUDELIA LIRIANO 02/05/25 Methylprednisolone (Medrol Dosepak) 4 Mg Paul, 4 MG PO UD, #21 TAB UAD Prov:KRANTHI CHAMORRO 01/04/24 Montelukast Sodium (MONTELUKAST SODIUM) 10 Mg Tab, 1 TAB PO DAILY for 30 Days, #30 TAB 5 Refills Prov:KRANTHI CHAMORRO 08/13/22 Ibuprofen (Ibuprofen) 600 Mg Tab, 1 TAB PO TID PRN, #30 TAB Prov:KRANTHI CHAMORRO 08/13/22 Penicillin V Potassium (Veetids) 500 Mg Tab, 1 TAB PO TID for 10 Days, #30 TAB Prov:KRANTHI CHAMORRO 08/13/22 Reported Medications Celecoxib (Celecoxib) 200 Mg Cap, 1 CAP PO BIDPRN PRN 04/26/25 Cyclobenzaprine HCl (Cyclobenzaprine Hydrochlo) 10 Mg Tab, 1-2 TAB PO QHSP PRN 04/26/25 Gabapentin (Gabapentin) 300 Mg Cap, 1 CAP PO BID 04/26/25 Current Medications Current Medications Medications (Trade) Dose Ordered Sig/Alia Route PRN Reason Start Time Stop Time Status Last Admin Gabapentin (Neurontin Capsule) 300 mg BID PO 04/26/25 22:00 04/27/25 10:25 Sodium Chloride 1,000 ml @ 120 mls/hr Q8H20M IV 04/27/25 09:45 04/27/25 10:25 Acetaminophen/ Hydrocodone Bitart (Mcbrides 5/325MG Tab) 1 tab Q4HP PRN PO MODERATE PAIN (4-6 PAIN SCALE) 04/27/25 09:45 Ondansetron HCl (Zofran) 4 mg Q4HP PRN IV NAUSEA / VOMITING 04/27/25 09:45 Acetaminophen (Tylenol Tablet) 650 mg Q6HP PRN PO PAIN SCALE 1-3 OR TEMP>100.4 04/27/25 09:45 Morphine Sulfate 2 mg Q4HPRN PRN IV SEVERE PAIN (7-10 PAIN SCALE) 04/27/25 09:45 04/27/25 11:42 Review of Systems Noncontributory Vital Signs Vital Signs Date Time Temp Pulse Resp B/P (MAP) Pulse Ox O2 Delivery O2 Flow Rate FiO2 04/27/25 17:00 98.2 85 18 138/89 (105) 96 98.2 04/27/25 13:55 Room Air* 0 21 Physical Exam Moderately built and nourished female in no acute distress but uncomfortable from the pain Vitals stable afebrile Lungs are clear Cardiovascular unremarkable Abdomen is soft tenderness in the epigastrium and right upper quadrant no rigidity no guarding no masses Bowel sounds normal Extremities no edema Labs/Diagnostic Data Labs Test 04/27/25 04:41 04/26/25 13:22 04/26/25 12:50 04/26/25 10:35 Range/Units White Blood Count 5.3 # 4.4-10.8 10^3/uL Red Blood Count 4.59 4.0-5.20 10^6/uL Hemoglobin 14.3 12.2-16.2 g/dL Hematocrit 42.6 36.0-46.0 % Mean Corpuscular Volume 92.8 80.0-100.0 fL Mean Corpuscular Hemoglobin 31.1 28.0-32.0 pg Mean Corpuscular Hemoglobin Concent 33.6 32.0-36.0 g/dL Red Cell Distribution Width 13.7 11.8-14.3 % Platelet Count 274 140-450 10^3/uL Mean Platelet Volume 8.0 6.9-10.8 fL Neutrophils (%) (Auto) 55.8 37.0-80.0 % Lymphocytes (%) (Auto) 33.6 10.0-50.0 % Monocytes (%) (Auto) 7.6 0.0-12.0 % Eosinophils (%) (Auto) 2.2 0.0-7.0 % Basophils (%) (Auto) 0.8 0.0-2.0 % Neutrophils # (Auto) 2.9 1.6-8.6 10 ^3/uL Lymphocytes # (Auto) 1.8 0.4-5.4 10 ^3/uL Monocytes # (Auto) 0.4 0-1.3 10 ^3/uL Eosinophils # (Auto) 0.1 0-0.8 10 ^3/uL Basophils # (Auto) 0 0-0.2 10 ^3/uL Nucleated Red Blood Cells 0.0 % Sodium Level 142 136-145 mmol/L Potassium Level 4.5 3.5-5.1 mmol/L Chloride Level 106 98-107 mmol/L Carbon Dioxide Level 26 20-31 mmol/L Anion Gap 10 5-15 Blood Urea Nitrogen 14 9-23 mg/dL Creatinine 0.86 0.550-1.02 mg/dL Glomerular Filtration Rate Calc 85 >90 mL/min BUN/Creatinine Ratio 16.3 10.0-20.0 Serum Glucose 89 74-106 mg/dL Calcium Level 8.8 8.7-10.4 mg/dL Total Bilirubin 0.5 0.2-1.0 mg/dL Aspartate Amino Transferase (AST) 143 H 13-40 U/L Alanine Aminotransferase (ALT) 260 H 7-40 U/L Alkaline Phosphatase 91 46-116 U/L Total Protein 6.2 5.7-8.2 g/dL Albumin 3.8 3.2-4.8 g/dL Troponin I High Sensitivity < 3 L </=34 ng/L Urine Test Negative Negative Lipase 33 12-53 U/L Assessment 43-year-old female with past history of hysterectomy admitted with the comp laints of abdominal pain in the epigastrium and right upper quadrant radiating to the shoulder and back severe pain the patient had a CT scan which vision ultrasound showed gallbladder stones as well as MRCP which showed dilated common bile duct without stones liver enzymes are high lipase is normal clinical impression Cholecystitis with slightly dilated common bile duct possibly a stone has been passed with small sludge or other pathology can not be excluded in the common bile duct But it with the MRCP normal less likely to be big stone in CBD Plan/Recommendation Recommend surgical consult Clear liquids We will recommend surgery for the gallbladder and follow the liver enzymes Thank you Dr. Lizy Anglin discussed with: Patient JENN VASQUEZ MD Apr 27, 2025 19:56
[2025-04-27 20:00] VITALS: PULSE 87; RESP 16; O2SAT 94
[2025-04-27 21:03] VITALS: BP 133/80; PULSE 86; RESP 18; TEMP 98.6; O2SAT 95
[2025-04-27 22:30] VITALS: BP 128/85; PULSE 86; RESP 17; TEMP 98.3; O2SAT 96
[2025-04-27] MEDS: HYDROcodone-ACET 5/325MG TAB PO PRN (23:06)
[2025-04-28] VITALS (8 sets, daily range): BP systolic 117–138; BP diastolic 67–98; PULSE 75–110; RESP 12–17; TEMP 97.7–98.7; O2SAT 94–98
[2025-04-28] MEDS: ACETAMINOPHEN 325 MG TAB PO PRN (04:01)
[2025-04-28] MEDS: IBUPROFEN 600 MG TAB PO ONE (05:41)
[2025-04-28 07:33] LABS: Hematocrit 44.7 % (36.0-46.0); Hemoglobin 14.8 g/dL (12.2-16.2); Mean Corpuscular Hemoglobin 30.4 pg (28.0-32.0); Mean Corpuscular Volume 92.1 fL (80.0-100.0); Nucleated Red Blood Cells % 0.1 %
[2025-04-28 07:45] LABS: Albumin 3.9 g/dL (3.2-4.8); Alkaline Phosphatase 88 U/L (46-116); Anion Gap 9 (5-15); BUN/Creatinine Ratio 13.4 (10.0-20.0); Calcium 8.9 mg/dL (8.7-10.4); Carbon Dioxide 26 mmol/L (20-31); Chloride 106 mmol/L (98-107); Glucose 79 mg/dL (74-106); Potassium 4.3 mmol/L (3.5-5.1); Sodium 141 mmol/L (136-145); Total Protein 6.4 g/dL (5.7-8.2)
[2025-04-28 07:46] LABS: Bilirubin, Total 0.6 mg/dL (0.2-1.0)
[2025-04-28 07:48] LABS: Alanine Aminotransferase 169 U/L (7-40); Blood Urea Nitrogen 9 mg/dL (9-23)
--- NOTE | 2025-04-28 10:35 | DVHINCON2 ---
Consultation - Surgical Date Seen: Apr 28, 2025 Referring Physician Reason for Consultation Cholecystitis History of Present Illness History of Present Illness Mrs. Ruelas is a 44-year-old female who presented to the ED and was admitted due to epigastric abdominal pain that radiated to bilateral shoulders and to her back. This pain started back on Wednesday after she was at a work function and she ate tacos and tamales. Patient states that she has never had this pain before but has been suffering from bloating for some time now. Denies any acholic stools, fevers, chills, darkening of urine, nausea, vomiting. Denies past episodes of pancreatitis or peptic ulcer disease. States that she has been suffering from constipation for a long time, which was a change after her hysterectomy, but denies ever having a colonoscopy. Past Medical/Surgical History Past Medical/Surgical History Past medical history constipation, back pain, umbilical hernia, vaginal prolapse Past surgical history abdominal hysterectomy, umbilical hernia repair with mesh, some sort of bowel surgery (does not recall the details) Family and Social History Family and Social History Family history noncontributory ETOH/T Ob/drugs denies Allergies and medications Allergies: Coded Allergies: NO KNOWN ALLERGIES (Unverified , 08/13/22) Home Meds Active Scripts Clindamycin Hcl (Clindamycin Hcl) 300 Mg Cap, 1 CAP PO TID for 5 Days, #21 CAP Prov:JORGE LUIS NICOLAS MD 02/08/25 Amoxicillin & Pot Clavulanate (Amoxicillin/Potassium Cla) 875 Mg Tab, 1 TAB PO BID for 7 Days, #14 TAB 0 Refills Prov:GUDELIA LIRIANO 02/05/25 Acetaminophen (Acetaminophen) 500 Mg Tab, 500 MG PO Q4HPRN, #30 TAB 0 Refills Prov:GUDELIA LIRIANO 02/05/25 Methylprednisolone (Medrol Dosepak) 4 Mg Paul, 4 MG PO UD, #21 TAB UAD Prov:KRANTHI CHAMORRO 01/04/24 Montelukast Sodium (MONTELUKAST SODIUM) 10 Mg Tab, 1 TAB PO DAILY for 30 Days, #30 TAB 5 Refills Prov:KRANTHI CHAMORRO 08/13/22 Ibuprofen (Ibuprofen) 600 Mg Tab, 1 TAB PO TID PRN, #30 TAB Prov:KRANTHI CHAMORRO 08/13/22 Penicillin V Potassium (Veetids) 500 Mg Tab, 1 TAB PO TID for 10 Days, #30 TAB Prov:EDDA*KRANTHI COIL CLEANER 08/13/22 Reported Medications Celecoxib (Celecoxib) 200 Mg Cap, 1 CAP PO BIDPRN PRN 04/26/25 Cyclobenzaprine HCl (Cyclobenzaprine Hydrochlo) 10 Mg Tab, 1-2 TAB PO QHSP PRN 04/26/25 Gabapentin (Gabapentin) 300 Mg Cap, 1 CAP PO BID 04/26/25 Review of systems Review of Systems: HEENT:Normal, CVS:Normal, RESPIRATORY:Normal, GI:Abnormal (See HPI), :Normal, MSK:Normal, NEURO:Normal Examination Vital signs Vital Signs Date Time Temp Pulse Resp B/P (MAP) Pulse Ox O2 Delivery O2 Flow Rate FiO2 04/28/25 09:00 98.0 82 17 134/98 (110) 98 98.0 04/27/25 20:00 Room Air* 0 21 Laboratory Labs Test 04/28/25 06:42 04/26/25 13:22 04/26/25 12:50 04/26/25 10:35 Range/Units White Blood Count 5.9 4.4-10.8 10^3/uL Red Blood Count 4.86 4.0-5.20 10^6/uL Hemoglobin 14.8 12.2-16.2 g/dL Hematocrit 44.7 36.0-46.0 % Mean Corpuscular Volume 92.1 80.0-100.0 fL Mean Corpuscular Hemoglobin 30.4 28.0-32.0 pg Mean Corpuscular Hemoglobin Concent 33.1 32.0-36.0 g/dL Red Cell Distribution Width 13.4 11.8-14.3 % Platelet Count 285 140-450 10^3/uL Mean Platelet Volume 8.1 6.9-10.8 fL Neutrophils (%) (Auto) 54.1 37.0-80.0 % Lymphocytes (%) (Auto) 37.0 10.0-50.0 % Monocytes (%) (Auto) 6.2 0.0-12.0 % Eosinophils (%) (Auto) 2.0 0.0-7.0 % Basophils (%) (Auto) 0.7 0.0-2.0 % Neutrophils # (Auto) 3.2 1.6-8.6 10 ^3/uL Lymphocytes # (Auto) 2.2 0.4-5.4 10 ^3/uL Monocytes # (Auto) 0.4 0-1.3 10 ^3/uL Eosinophils # (Auto) 0.1 0-0.8 10 ^3/uL Basophils # (Auto) 0 0-0.2 10 ^3/uL Nucleated Red Blood Cells 0.1 % Sodium Level 141 136-145 mmol/L Potassium Level 4.3 3.5-5.1 mmol/L Chloride Level 106 98-107 mmol/L Carbon Dioxide Level 26 20-31 mmol/L Anion Gap 9 5-15 Blood Urea Nitrogen 9 9-23 mg/dL Creatinine 0.67 0.550-1.02 mg/dL Glomerular Filtration Rate Calc 110 >90 mL/min BUN/Creatinine Ratio 13.4 10.0-20.0 Serum Glucose 79 74-106 mg/dL Calcium Level 8.9 8.7-10.4 mg/dL Total Bilirubin 0.6 0.2-1.0 mg/dL Aspartate Amino Transferase (AST) 59 H 13-40 U/L Alanine Aminotransferase (ALT) 169 H 7-40 U/L Alkaline Phosphatase 88 46-116 U/L Total Protein 6.4 5.7-8.2 g/dL Albumin 3.9 3.2-4.8 g/dL Troponin I High Sensitivity < 3 L </=34 ng/L Urine Test Negative Negative Lipase 33 12-53 U/L Examination: GENERAL:Normal (Normal-appearing, well nourished, alert awake and oriented x3), HEENT:Normal (No icterus, neck supple), LUNGS:Normal (Nonlabored breathing with symmetric expansion), ABDOMEN:Abnormal (Nondistended, Pfannens tiel scar healed, infraumbilical scar healed, lap scars healed, soft, depressible, mild epigastric tenderness, right upper quadrant tenderness, no rebound, no guarding), SKIN:Normal (No jaundice) Problem List/Assessment/Plan Problems: (1) Acute cholecystitis due to biliary calculus Assessment and Plan Mrs. Ruelas is a 44-year-old female who presented and was admitted due to acute cholecystitis. Patient has a ultrasound that shows multiple gallstones within the gallbladder wall lumen, there is no pericholecystic fluid or gallbladder wall thickening on the ultrasound. The ultrasound showed an enlarged CBD, and an MRCP was obtained, MRCP does not show any CBD stones but the CBD is dilated to 11.6 mm, and there is trace pericholecystic fluid. She has no leukocytosis, she has transaminitis but total bilirubin level was within normal limits. On physical exam the patient was tender to the right upper quadrant, all of these findings are consistent with the acute cholecystitis. Patient will benefit from laparoscopic cholecystectomy. Procedure, risks, benefits, complications, and alternatives were discussed with the patient. Patient would like to proceed with surgery as planned. 1. On-call to OR for laparoscopic cholecystectomy, possible open 2. NPO 3. A.m. labs (ordered) 4. Pain and nausea control Plan discussed with Plan discussed with: Patient, Other (Aunt) Visit Coding Surgery Date of Service if different f: Apr 28, 2025 Billing Provider: PRADEEP MERCHANT MD Surgery Visit Codes: [id number] - INP CONSULT <110 MIN PRADEEP MERCHANT MD Apr 28, 2025 10:35
--- NOTE | 2025-04-28 10:59 | DVHPN2 ---
Progress Note - Dictate Date Seen: Apr 28, 2025 Has the PT tested + for MRSA If YES, has PT been informed?: No Medical Necessity Reason Pt with a Central, PICC or Fol: No Subjective Patient has some complaints of abdominal pain he has ultrasound at gallstones in the bile ducts on the MRI MRCP showed no stones in the bile duct LFTs were high in trending down today alk phos is normal vital signs Vital Sign Date Time Temp Pulse Resp B/P (MAP) Pulse Ox O2 Delivery O2 Flow Rate FiO2 04/28/25 09:00 98.0 82 17 134/98 (110) 98 98.0 04/28/25 08:00 Room Air* 0 21 Total Intake and Output 04/27/25 04/27/25 04/28/25 15:00 23:00 07:00 Intake Total 960 ml Output Total 300 ml Balance -300 ml 960 ml medications Current Medications Medications Dose Ordered Sig/Alia Route Start Time Stop Time Status Last Admin Dose Admin Gabapentin 300 mg BID PO 04/26/25 22:00 04/27/25 10:25 300 MG Sodium Chloride 1,000 ml @ 120 mls/hr Q8H20M IV 04/27/25 09:45 04/27/25 23:05 120 MLS/HR Acetaminophen/ Hydrocodone Bitart 1 tab Q4HP PRN PO 04/27/25 09:45 04/28/25 09:20 1 TAB Ondansetron HCl 4 mg Q4HP PRN IV 04/27/25 09:45 Acetaminophen 650 mg Q6HP PRN PO 04/27/25 09:45 04/28/25 04:01 650 MG Morphine Sulfate 2 mg Q4HPRN PRN IV 04/27/25 09:45 04/28/25 06:49 2 MG objective Abdomen is soft tenderness in the epigastrium right upper quadrant laboratory and microbiology Laboratory Tests 04/28/25 06:42 Test 04/28/25 06:42 Range/Units Serum Glucose 79 74-106 mg/dL Assessment/Plan 43-year-old female with past history of hysterectomy admitted with the complaints of abdominal pain in the epigastrium and right upper quadrant radiating to the shoulder and back severe pain the patient had a CT scan which vision ultrasound showed gallbladder stones as well as MRCP which showed dilated common bile duct without stones liver enzymes are high lipase is normal clinical impression Cholecystitis with slightly dilated common bile duct possibly a stone has been passed with small sludge or other pathology can not be excluded in the common bile duct But it with the MRCP normal less likely to be big stone in CBD Liver Enzymes are coming down the pain is still of the patient is going for gallbladder surgery today We will recommend to follow the liver enzymes closely Thank you Dr. Medel Plan discussed with: Patient JENN MEDEL MD Apr 28, 2025 10:59
[2025-04-28] MEDS: BUPIVACAINE 0.25% INJ 50ML VIAL ONE (11:01)
[2025-04-28] MEDS ORDERED: METOCLOPRAMIDE HCL 5MG/ml INJ 2ml VIAL IV PRN (11:15)
[2025-04-28] MEDS ORDERED: HYDROmorphone HCL 2 MG/ML VL/or syr IV PRN (11:15)
[2025-04-28] MEDS: ACETAMINOPHEN IV 1000 MG/100ML (10MG/ML) IV ONE (11:15)
[2025-04-28] MEDS ORDERED: ONDANSETRON HCL 4 MG/2 ML VIAL IV PRN (11:15)
[2025-04-28] MEDS ORDERED: MIDAZOLAM HCL 2MG/2ML 2ml VIAL (1mg/ml) ONE (11:25)
[2025-04-28] MEDS ORDERED: fentaNYL CITRATE 100 MCG/2 ML VL ONE (11:25)
[2025-04-28] MEDS ORDERED: ROCURONIUM 10MG/ML 10ML VIAL IV ONE (11:25)
[2025-04-28] MEDS ORDERED: PROPOFOL 10 MG/ML 20 ML IV ONE (11:25)
[2025-04-28] MEDS ORDERED: METOCLOPRAMIDE HCL 5MG/ml INJ 2ml VIAL ONE (11:26)
[2025-04-28] MEDS ORDERED: ONDANSETRON HCL 4 MG/2 ML VIAL ONE (11:26)
[2025-04-28] MEDS ORDERED: HYDROmorphone HCL 2 MG/ML VL/or syr ONE (11:51)
[2025-04-28] MEDS ORDERED: SODIUM CHLORIDE LOCK 10 ML ONE (11:56)
[2025-04-28] MEDS ORDERED: hydrALAZINE HCL 20 MG/ML VL ONE (11:56)
[2025-04-28] MEDS ORDERED: SUGAMMADEX 200mg/2ml Vial (100MG/ML) IV ONE (11:59)
[2025-04-28] MEDS ORDERED: METOPROLOL TARTRATE 1MG/1ML-5ML VIAL IV ONE (12:12)
--- NOTE | 2025-04-28 13:24 | DVHOP2 ---
Operative Report - 2 Report Details Date: 04/28/25 Preop Diagnosis: Acute cholecystitis Postop Diagnosis: Same Surgeon: Jaya Nascimento MD Anesthesiologist: Jovon Galeana CRNA Anesthesia: General Consent: The patient was informed of the risks and benefits of the procedure. These include but are not limited to complications of anesthesia, postoperative infection, incomplete relief of symptoms, recurrence of symptoms, damage to blood vessels, nerves and tendons, deep venous thrombosis, pulmonary embolism and possible need for repeat surgery in the future. Complications: None Estimated Blood Loss: 10 mL Findings: Distended and acutely inflamed gallbladder Omental adhesions to liver and gallbladder infundibulum Rashad Ye Yohan bands Fatty liver Indications for Surgery: Acute cholecystitis Name of Procedure Performed Laparoscopic cholecystectomy Procedure Details Procedure Details: Upon arriving to the operating room the patient was transferred to the operating table and placed in the supine position with arms extended. General endotracheal anesthesia was induced. Time-out was observed. Patient was then prepped and draped in the standard sterile surgical fashion with chlorhexidine. I then proceeded to gain access to the peritoneal cavity utilizing Veress needle technique at gold's point, and peritoneal cavity was insufflated to 15 mmHg with toleration. I then made a 5 mm incision and needle site and utilizing up to view I placed a 5 mm trocar into the peritoneal cavity. I then inserted a 5 mm laparoscope and inspected the entry site, no injuries noted. I then placed 4 additional working ports under direct vision, a 12 mm port at the right off midline immediately superior to the umbilicus, 3 5 mm ports 1 at the epigastric area, 1 at the right midclavicular subcostal area, and 1 at the right flank area. I then switched to a 10 mm 30 degree laparoscope. I then directed my attention to the liver/gallbladder area, the liver was fatty and with Rashad Ye Yohan bands. The gallbladder was distended, with some omental adhesions to the infundibulum area and to the liver. I then proceeded to grasp the gallbladder at its fundus and retracted it cephalad and towards the right shoulder. I then lyse the omental to infundibulum and omental to liver adhesions. I then placed a 2nd grasper at the infundibulum and retracted laterally thus exposing Calot triangle. I then proceeded to incise the peritoneum at the base of the gallbladder on either side and extended it cephalad towards the liver. I then proceeded to free Calot triangle from all fibrous and fatty tissue until it was fully skeletonized. Once it was fully skeletonize identified 3 structures entering the gallbladder, cystic duct, cystic artery, and a posterior cystic artery branch. Critical view of safety was obtained. I then proceeded to clip both the cystic artery and the posterior branch, with 5 mm clips twice proximal and 1 times distal. I then milked the cystic duct for any stones, non felt. I then clipped the duct with 3 5 mm clips proximal and 1 distal. I then transected the cystic duct 1st, and then both of the cystic artery branches. I then proceeded to remove the gallbladder from the liver bed utilizing cautery. I had bile and small stones spillage from a hole in the gallbladder. Once the gallbladder was completely off the liver bed it was placed in the Endo-Catch bag and taken out of the peritoneal cavity through the 12 mm port site. Then utilizing the Chandan-Jennifer device I placed an 0 Vicryl stitch at the 12 mm site, and held it in place with a hemostat. I then directed my attention back to the liver and gallbladder fossa. I then series serially and copiously irrigated the gallbladder fossa under the liver and over the liver, until effluent was clear and all the stones were removed. I then took a 2nd look at the gallbladder fossa there was some oozing from the fossa bed, it was cauterized. I then irrigated some more the gallbladder fossa and suctioned the fluid. Hemostasis achieved. I then inspected the clips, they were in place but I noted a small ooze coming from the fatty tissue around the clips, I then placed Juan powder over this area. Hemostasis achieved. This concluded the intraperitoneal portion of the operation. All counts complete and correct. I then proceeded to remove all 5 mm ports under direct vision, no bleeding coming from abdominal wall. The peritoneal cavity was allowed to fully desufflate and the previously placed 0 Vicryl retention fascial stitch was closed. 0.25% Marcaine was used as local anesthetic. All skin sites were closed with 4-0 Monocryl and Dermabond. Patient tolerated the procedure well and was transferred to PACU in stable condition. Specimen: Gallbladder and contents Condition Stable Disposition Still a Patient JAYA MERCHANT MD Apr 28, 2025 13:24
[2025-04-28] MEDS ORDERED: HYDROcodone-ACET 5/325MG TAB PO PRN (13:30)
--- NOTE | 2025-04-28 14:50 | DVHPN2 ---
Subjective Patient is seen and examined at bedside. The patient just came back from cholecystectomy. The patient complained of abdominal pain and being tired Reviewed: Care Plan, H&P, Labs, Medications, Previous Orders, Radiology Changes from previous H/P or p: No Changes Gastrointestinal: Abdominal Pain Objective Vitals Vital Signs Date Time Temp Pulse Resp B/P (MAP) Pulse Ox O2 Delivery O2 Flow Rate FiO2 04/28/25 09:00 98.0 82 17 134/98 (110) 98 98.0 04/28/25 08:00 Room Air* 0 21 Intake/Output Intake and Output 04/28/25 07:00 Intake Total 960 ml Output Total 300 ml Balance 660 ml Intake IV Total 960 ml Output Urine Total 300 ml General Appearance: Alert, Cooperative, No acute distress HEENT: Atraumatic, PERRLA, EOMI, Mucous membr. moist/pink Neck: Supple Lungs: Clear to auscultation, Normal air movement Cardiovascular: Regular rate, Normal S1, Normal S2, No murmurs, Gallops, Rubs Abdomen: Normal bowel sounds, Soft, No tenderness Neuro: Cranial nerves 3-12 NL Psych/Mental Status: Mental status NL Medications Current Medications Medications Dose Ordered Sig/Alia Route Start Time Stop Time Status Last Admin Dose Admin Gabapentin 300 mg BID PO 04/26/25 22:00 04/27/25 10:25 300 MG Sodium Chloride 1,000 ml @ 120 mls/hr Q8H20M IV 04/27/25 09:45 04/28/25 14:17 120 MLS/HR Ondansetron HCl 4 mg Q4HP PRN IV 04/27/25 09:45 Acetaminophen 650 mg Q6HP PRN PO 04/27/25 09:45 04/28/25 04:01 650 MG Morphine Sulfate 2 mg Q4HPRN PRN IV 04/27/25 09:45 04/28/25 06:49 2 MG Acetaminophen/ Hydrocodone Bitart 1 tab Q4HPRN PRN PO 04/28/25 13:30 Acetaminophen/ Hydrocodone Bitart 1 tab Q4HP PRN PO 04/28/25 13:30 Acetaminophen 650 mg Q6HR PO 04/28/25 18:00 Laboratory Results Laboratory Tests 04/28/25 06:42 Chemistry Test 04/28/25 06:42 Albumin 3.9 g/dL (3.2-4.8) Calcium Level 8.9 mg/dL (8.7-10.4) Total Protein 6.4 g/dL (5.7-8.2) LFT Test 04/28/25 06:42 Alanine Aminotransferase (ALT) 169 U/L (7-40) H Alkaline Phosphatase 88 U/L (46-116) Aspartate Amino Transferase (AST) 59 U/L (13-40) H Total Bilirubin 0.6 mg/dL (0.2-1.0) Urinalysis Test 04/26/25 12:50 Urine Test Negative (Negative) Labs and/or images reviewed: Labs reviewed by me Assessment/Plan Assessment/Plan Intractable abdominal pain Gallstones Dilated CBD rule out choledocholithiasis Cholelithiasis with trace pericholecystic fluid Dilated 14 mm common duct [id number] hepatic steatosis with hepatomegaly History of hysterectomy Plan Continuing current management. Patient already had cholecystectomy. Continuing with IV antibiotic. GI specialist the patient did not need to transfer to higher level care. Patient is on clear liquid diet advance as per surgeon. Continuing pain medication This medical document was created using an electronic medical record system with [id number] direct computerized dictation system. Although this document has been carefully reviewed, there may still be some phonetic and typographical errors. These areas are purely typographical due to imperfections of the software programs, and do not reflect any compromise in the patient's medical care. Plan discussed with: Patient Date of Service: Apr 28, 2025 Billing Provider: SUDHA BULLARD MD Common Visit Codes: [id number] INP/OBS CARE(HIGH) SUDHA BULLARD MD Apr 28, 2025 14:50
--- NOTE | 2025-04-28 14:51 | DVHPN2 ---
Gastrointestinal: Abdominal Pain Objective Vitals Vital Signs Date Time Temp Pulse Resp B/P (MAP) Pulse Ox O2 Delivery O2 Flow Rate FiO2 04/28/25 09:00 98.0 82 17 134/98 (110) 98 98.0 04/28/25 08:00 Room Air* 0 21 Intake/Output Intake and Output 04/28/25 07:00 Intake Total 960 ml Output Total 300 ml Balance 660 ml Intake IV Total 960 ml Output Urine Total 300 ml Medications Current Medications Medications Dose Ordered Sig/Alia Route Start Time Stop Time Status Last Admin Dose Admin Gabapentin 300 mg BID PO 04/26/25 22:00 04/27/25 10:25 300 MG Sodium Chloride 1,000 ml @ 120 mls/hr Q8H20M IV 04/27/25 09:45 04/28/25 14:17 120 MLS/HR Ondansetron HCl 4 mg Q4HP PRN IV 04/27/25 09:45 Acetaminophen 650 mg Q6HP PRN PO 04/27/25 09:45 04/28/25 04:01 650 MG Morphine Sulfate 2 mg Q4HPRN PRN IV 04/27/25 09:45 04/28/25 06:49 2 MG Acetaminophen/ Hydrocodone Bitart 1 tab Q4HPRN PRN PO 04/28/25 13:30 Acetaminophen/ Hydrocodone Bitart 1 tab Q4HP PRN PO 04/28/25 13:30 Acetaminophen 650 mg Q6HR PO 04/28/25 18:00 Laboratory Results Laboratory Tests 04/28/25 06:42 Chemistry Test 04/28/25 06:42 Albumin 3.9 g/dL (3.2-4.8) Calcium Level 8.9 mg/dL (8.7-10.4) Total Protein 6.4 g/dL (5.7-8.2) LFT Test 04/28/25 06:42 Alanine Aminotransferase (ALT) 169 U/L (7-40) H Alkaline Phosphatase 88 U/L (46-116) Aspartate Amino Transferase (AST) 59 U/L (13-40) H Total Bilirubin 0.6 mg/dL (0.2-1.0) Urinalysis Test 04/26/25 12:50 Urine Test Negative (Negative) Assessment/Plan Assessment/Plan Intractable abdominal pain Gallstones Dilated CBD rule out choledocholithiasis Cholelithiasis with trace pericholecystic fluid Dilated 14 mm common duct [id number] hepatic steatosis with hepatomegaly History of hysterectomy Plan Patient will need transfer to higher level care for ERCP, discussed with ER staff Antiemetics Pain management Gallbladder ultrasound noted MRCP ordered IV fluids NPO Home medications reconciled DVT prophylaxis-SCDs PUD prophylaxis-PPIs Discussed plan of care with patient nurse Plan discussed with: Patient SUDHA BULLARD MD Apr 28, 2025 14:51
[2025-04-28] MEDS: ONDANSETRON HCL 4 MG/2 ML VIAL IV PRN (16:10)
[2025-04-28] MEDS: ACETAMINOPHEN 325 MG TAB PO SCH (18:18)
[2025-04-28] MEDS: HYDROcodone-ACET 10/325MG TAB PO PRN (18:18)
[2025-04-28] MEDS ORDERED: TRAM50TA2 PO (21:11)
[2025-04-28] MEDS ORDERED: HYDR-4798 PO (21:11)
[2025-04-28] MEDS: KETOROLAC TROMETH 30 MG/ML 1ML VIAL IV ONE (21:38)
[2025-04-29] VITALS (7 sets, daily range): BP systolic 118–157; BP diastolic 80–100; PULSE 101–115; RESP 16–17; TEMP 97.8–98.5; O2SAT 93–99
[2025-04-29 10:25] LABS: Hematocrit 43.3 % (36.0-46.0); Hemoglobin 14.6 g/dL (12.2-16.2); Mean Corpuscular Hemoglobin 31.2 pg (28.0-32.0); Mean Corpuscular Volume 92.4 fL (80.0-100.0); Nucleated Red Blood Cells % 0.0 %
[2025-04-29 10:44] LABS: Alkaline Phosphatase 83 U/L (46-116); Anion Gap 10 (5-15); Calcium 9.3 mg/dL (8.7-10.4); Carbon Dioxide 27 mmol/L (20-31); Chloride 104 mmol/L (98-107); Sodium 141 mmol/L (136-145)
[2025-04-29 10:45] LABS: Albumin 4.3 g/dL (3.2-4.8); BUN/Creatinine Ratio 11.1 (10.0-20.0); Bilirubin, Direct 0.2 mg/dL (<0.3); Total Protein 6.8 g/dL (5.7-8.2)
[2025-04-29 10:47] LABS: Bilirubin, Total 0.6 mg/dL (0.2-1.0)
[2025-04-29 10:49] LABS: Alanine Aminotransferase 200 U/L (7-40); Blood Urea Nitrogen 9 mg/dL (9-23); Glucose 110 mg/dL (74-106); Potassium 3.4 mmol/L (3.5-5.1)
--- NOTE | 2025-04-29 11:00 | DVHPN2 ---
Progress Note - Surgical Date Seen: Apr 29, 2025 Post op day Post op day: 1 Subjective Patient reports: Feels better (Tolerated diet, ambulating, no pain complaints, afebrile and tachycardic) Review of Systems: Deferred Objective Vital signs Vital Sign Date Time Temp Pulse Resp B/P (MAP) Pulse Ox O2 Delivery O2 Flow Rate FiO2 04/29/25 08:47 97.8 103 17 118/80 (93) 97 97.8 04/29/25 08:00 Room Air* 0 21 Total Intake and Output 04/28/25 04/28/25 04/29/25 15:00 23:00 07:00 Intake Total 1300 ml 1370 ml Output Total 600 ml Balance 1300 ml 770 ml Medications Current Medications Medications Dose Ordered Sig/Alia Route Start Time Stop Time Status Last Admin Dose Admin Gabapentin 300 mg BID PO 04/26/25 22:00 04/29/25 09:21 300 MG Sodium Chloride 1,000 ml @ 120 mls/hr Q8H20M IV 04/27/25 09:45 04/28/25 14:17 120 MLS/HR Ondansetron HCl 4 mg Q4HP PRN IV 04/27/25 09:45 04/28/25 20:24 4 MG Acetaminophen 650 mg Q6HP PRN PO 04/27/25 09:45 04/28/25 04:01 650 MG Morphine Sulfate 2 mg Q4HPRN PRN IV 04/27/25 09:45 04/29/25 05:23 2 MG Acetaminophen/ Hydrocodone Bitart 1 tab Q4HPRN PRN PO 04/28/25 13:30 Acetaminophen/ Hydrocodone Bitart 1 tab Q4HP PRN PO 04/28/25 13:30 04/29/25 09:21 1 TAB Acetaminophen 650 mg Q6HR PO 04/28/25 18:00 04/28/25 18:18 650 MG Laboratory Laboratory Tests 04/29/25 09:26 Test 04/29/25 09:26 Range/Units Serum Glucose 110 H 74-106 mg/dL Examination: GENERAL:Normal (Alert awake and oriented x3), HEENT:Normal (No icterus), LUNGS:Normal (Nonlabored breathing with symmetric expansion), ABDOMEN:Normal (Nondistended, incision sites with overlying skin glue, slight ecchymosis around the periumbilical scar, soft, depressible, nontender), SKIN:Normal (Or jaundice) Labs and/or images reviewed: Labs reviewed by me (Labs within normal limits, no elevation in bilirubin level) Problem List/Assessment/Plan Problems: (1) Acute cholecystitis due to biliary calculus Assessment and Plan Mrs. Ruelas is a 44-year-old female who presented yesterday with a acute cholecystitis and is currently postop day 1 from laparoscopic cholecystectomy. Patient doing well after surgery, tolerating diet, ambulating, pain well controlled. Labs are all within normal limits. Patient is cleared per surgical standpoint for discharge. 1. Cleared for discharge per surgical standpoint 2. Continue low-fat diet 3. No lifting over 10 lb for 6 weeks 4. May shower starting today, soap and water okay to run over incision sites. No swimming or bathing for 2 weeks 5. Tylenol and/or ibuprofen for baseline pain control, please follow final inspector balance wheel's directions 6. Patient can continue her home tramadol for severe pain 7. No driving while taking narcotics 8. Follow up with Dr. Zaidi at surgery Clinic in 2 weeks, please call for appointment My Orders My Orders Orders - PRADEEP MERCHANT MD Procedure Category Date Status Time Hydrocodone-Acet PHA 04/28/25 In Process 5/325mg Tab ([place] 13:30 Hydrocodone-Acet PHA 04/28/25 In Process 10/325mg Tab ([place] 13:30 Acetaminophen Tablet PHA 04/28/25 In Process (Tylenol Tablet) 18:00 Cardiac DIET 04/28/25 Transmitted Diet-2gna,Lofat,Lochol Lunch Abdominal Binder ERIC 04/28/25 In Process 17:55 Plan discussed with Plan discussed with: Patient Visit Coding Surgery Date of Service if different f: Apr 29, 2025 Billing Provider: PRADEEP MERCHANT MD Surgery Visit Codes: [id number] INP/OBS CARE(HIGH) PRADEEP MERCHANT MD Apr 29, 2025 11:00
[2025-04-29] MEDS ORDERED: KETOROLAC TROMETH 30 MG/ML 1ML VIAL IV PRN (12:15)
[2025-04-29] MEDS ORDERED: HYDR-4798 PO (15:30)
--- NOTE | 2025-04-29 15:32 | DVHDS2 ---
Discharge Summary Date of Admission Apr 27, 2025 at 09:44 Date of Discharge: Apr 29, 2025 Admitting Diagnosis Intractable abdominal pain Gallstones Dilated CBD rule out choledocholithiasis Cholelithiasis with trace pericholecystic fluid Dilated 14 mm common duct Srmw-do-rwflmbds hepatic steatosis with hepatomegaly History of hysterectomy Labs/Diagnostic Data: Laboratory Results Test 04/29/25 09:26 04/26/25 13:22 04/26/25 12:50 04/26/25 10:35 White Blood Count 11.4 10^3/uL (4.4-10.8) Red Blood Count 4.68 10^6/uL (4.0-5.20) Hemoglobin 14.6 g/dL (12.2-16.2) Hematocrit 43.3 % (36.0-46.0) Mean Corpuscular Volume 92.4 fL (80.0-100.0) Mean Corpuscular Hemoglobin 31.2 pg (28.0-32.0) Mean Corpuscular Hemoglobin Concent 33.7 g/dL (32.0-36.0) Red Cell Distribution Width 13.7 % (11.8-14.3) Platelet Count 304 10^3/uL (140-450) Mean Platelet Volume 8.0 fL (6.9-10.8) Neutrophils (%) (Auto) 77.8 % (37.0-80.0) Lymphocytes (%) (Auto) 16.6 % (10.0-50.0) Monocytes (%) (Auto) 5.2 % (0.0-12.0) Eosinophils (%) (Auto) 0.2 % (0.0-7.0) Basophils (%) (Auto) 0.2 % (0.0-2.0) Neutrophils # (Auto) 8.9 10 ^3/uL (1.6-8.6) Lymphocytes # (Auto) 1.9 10 ^3/uL (0.4-5.4) Monocytes # (Auto) 0.6 10 ^3/uL (0-1.3) Eosinophils # (Auto) 0 10 ^3/uL (0-0.8) Basophils # (Auto) 0 10 ^3/uL (0-0.2) Nucleated Red Blood Cells 0.0 % Sodium Level 141 mmol/L (136-145) Potassium Level 3.4 mmol/L (3.5-5.1) Chloride Level 104 mmol/L (98-107) Carbon Dioxide Level 27 mmol/L (20-31) Anion Gap 10 (5-15) Blood Urea Nitrogen 9 mg/dL (9-23) Creatinine 0.81 mg/dL (0.550-1.02) Glomerular Filtration Rate Calc 91 mL/min (>90) BUN/Creatinine Ratio 11.1 (10.0-20.0) Serum Glucose 110 mg/dL (74-106) Calcium Level 9.3 mg/dL (8.7-10.4) Total Bilirubin 0.6 mg/dL (0.2-1.0) Direct Bilirubin 0.2 mg/dL (<0.3) Aspartate Amino Transferase (AST) 94 U/L (13-40) Alanine Aminotransferase (ALT) 200 U/L (7-40) Alkaline Phosphatase 83 U/L (46-116) Total Protein 6.8 g/dL (5.7-8.2) Albumin 4.3 g/dL (3.2-4.8) Troponin I High Sensitivity < 3 ng/L (</=34) Urine Test Negative (Negative) Lipase 33 U/L (12-53) Other Laboratory Tests 04/29/25 09:26 Brief Hx & Hospital Course: This is a 44 years old female with past medical history of hysterectomy come in because of severe abdominal pain 03/23. The patient described her pain as stabbing and constant. Is radiating to her left shoulder and that is why she decided to come to hospital for further evaluation. She was found to have acute cholecystitis with common bile duct dilation. MRCP showed no evidence of stone. Mildly elevation of AST and ALT. GI specialist see the patient and recommend cholecystectomy with no need of ERCP because the common bile duct mildly dilated probable due to stone had passed but there is no stone in common bile duct. So the patient subsequently has cholecystectomy done. After surgery the patient tolerated diet. Abdominal pain subsided. No nausea and vomiting. AST and ALT decreased. The patient will be discharged home today. Advised the patient to follow up with primary care physician 1-2 weeks. Follow up with GI specialist per schedule. Follow up with surgeon per schedule for postop follow up. Activity as tolerated. Do not lift or carry any object more than 10 lb for two weeks. The patient can shower but patch dry the surgery area. Diet low- cholesterol diet. Physical examined HEENT: Normocephalic atraumatic pupils equal react to light and accommodation. Extraocular muscles intact, conjunctiva pink, oropharynx moist, no thrush, no exudate. Lymphatic: No lymphadenopathy Cardiovascular exam: S1, S2 was heard. No murmurs, rubs, gallops Lung: Clear on auscultation bilaterally, no wheeze, rale, rhonchi. GI: Abdominal soft, nondistended, nontenderness, positive bowel sounds. Extremity: No crepitus, cyanosis, edema. Pedal pulses present bilateral. Full range of motion. Skin: Normal turgor, no rash. Psych: Alert, oriented x3. Neurology: No focal deficits, cranial nerve II to XII grossly intact. This medical document was created using an electronic medical record system with [employer] computerized dictation system. Although this document has been carefully reviewed, there may still be some phonetic and typographical errors. These areas are purely typographical due to imperfections of the software programs, and do not reflect any compromise in the patient's medical care. Condition at Discharge: Stable Final Diagnosis/Problems List acute cholecystitis status post cholecystectomy Intractable abdominal pain Dilated CBD 14 mm rule out choledocholithiasis Cholelithiasis with trace pericholecystic fluid Izti-[id number]-[id number] hepatic steatosis with hepatomegaly History of hysterectomy Discharge Disposition: Home Discharge Instruct/Medications Diet: Regular Activity: See Comment Activity comment: do not lift any object more than 10 lbs for 2 weeks Follow Up/Referral: pcp 1-2 weeks surgeon per schedule Medications: see med list Scheduled Hydrocodone-Acetaminophen (Hydrocodone Bitartrate/AC 10-325 mg), 1 TAB PO PRN Tramadol Hcl (Tramadol Hcl), 50 MG PO BID, (Reported) Scheduled PRN Celecoxib (Celecoxib), 1 CAP PO BIDPRN PRN, (Reported) Cyclobenzaprine HCl (Cyclobenzaprine Hydrochlo), 1-2 TAB PO QHSP PRN, (Reported) Ibuprofen (Ibuprofen), 1 TAB PO TID PRN Discharge Statement: "Patient was advised to return to the ER or call 911 if any headaches, dizziness, shortness of breath, chest pain, abdominal pain, bleeding, fevers, or worsening of medical condition. Patient was counseled about treatment plan, medications, possible side effects, patientverbalized understanding. All questions were answered to the best of my ability. This discharge took greater then 30 minutes in planning, reviewing documentation, counseling the patient, and discussing with other team members." ASSESSMENT ASSESSMENT Assessment acute cholecystitis status post cholecystectomy Date of Service: Apr 29, 2025 Billing Provider: SUDHA BULLARD MD Common Visit Codes: [id number] DISCH DAY >30min SUDHA BULLARD MD Apr 29, 2025 15:32
== END 2025-04-29 18:00 | disposition home or self-care (01) | DRG 263 ==
LOC: ER 09:15 → OVERFLOW 04-27 09:44 → WEST WING 04-27 22:55
PROC: 0FT44ZZ Resection of Gallbladder, Percutaneous Endoscopic Approach (ICD-10-PCS; principal; 2025-04-28 11:26)
DX: K80.00 Calculus of gallbladder with acute cholecystitis without obstruction (principal); K83.8 Other specified diseases of biliary tract; K76.0 Fatty (change of) liver, not elsewhere classified; R16.0 Hepatomegaly, not elsewhere classified; K66.0 Peritoneal adhesions (postprocedural) (postinfection); Z90.710 Acquired absence of both cervix and uterus; Z82.49 Family history of ischemic heart disease and other diseases of the circulatory system; Z83.3 Family history of diabetes mellitus
CPT/HCPCS: 36415; 71045; 74181; 76705; 80048; 80053; 81025; 82247; 82248; 83690; 84075; 84450; 84460; 84484; 85025; 93005; 96374; 96375; 96376; G0378; J0131; J0694; J1885; J2250; J2405; J2470; J2704; J3490